=== PATIENT | male | born 1935 | race Caucasian/White ===

== ENCOUNTER 2016-08-22 14:50 | Inpatient (IN) | payer MEDICARE, BC ==
[2016-08-22] VITALS (17 sets, daily range): BP systolic 95–143; BP diastolic 48–79
[~2016-08-22] VITALS: Ht 185.4 cm; Wt 79.8 kg
--- NOTE | 2016-08-22 14:50 | NUR ---
PT [id number] FROM SO: SEVERE SOB, HYPOXIA. PT HAS LHAND #22 IV CARAMEL CUTTER HAND. PLACED ON MONITOR. PT HAS SUPRAPUBIC CATH DRAINING THRU GRAVITY. AWAITING MD ORDER
--- NOTE | 2016-08-22 15:21 | NUR ---
RAC #20 IV BLOOD SAMPLE COLLECTED SENT TO LAB
[2016-08-22 15:22] LABS: BASOPHILS # (AUTO) 0.2 /CMM (0.0-0.2); BASOPHILS % (AUTO) 0.9 % (0.0-2.0); EOSINOPHILS # (AUTO) 0.3 /CMM (0.0-0.7); EOSINOPHILS % (AUTO) 1.3 % (0.0-6.0); HEMATOCRIT 37 % (39-51); HEMOGLOBIN 11.3 g/dL (13.5-17.5); LYMPHOCYTES # (AUTO) 3.5 /CMM (0.8-4.8); LYMPHOCYTES % (AUTO) 13.3 % (20.0-44.0); MEAN CORPUSCULAR HEMOGLOBIN 25 PG (26.0-33.0); MEAN CORPUSCULAR HGB CONC 31 g/dl (31.0-36.0); MEAN CORPUSCULAR VOLUME 82 fL (80-96); MONOCYTES # (AUTO) 1.1 /CMM (0.1-1.30); MONOCYTES % (AUTO) 4.1 % (2.0-12.0); NEUTROPHILS # (AUTO) 21.6 /CMM (1.8-8.9); NEUTROPHILS % (AUTO) 80.4 % (43.0-81.0); PLATELET COUNT (AUTO) 542 /CMM (150-450); RDW COEFFICIENT OF VARIATION 15.5 (11.5-15.0); RED BLOOD CELL COUNT(AUTO) 4.46 MIL/uL (4.5-6.0)
--- NOTE | 2016-08-22 15:25 | NUR ---
PT ALLERGIC TO PCN DR HAN AGREE TO CEFIPIME PT HAD HX OF TAKING MEDS.
[2016-08-22 15:28] LABS: WHITE BLOOD COUNT (AUTO) 26.7 K/uL (4.3-11.0)
[2016-08-22] MEDS ORDERED: CEFEPIME 1 GM in IV D5W 50 ML IV ONE (15:30)
[2016-08-22] MEDS ORDERED: VANCOMYCIN 1 GM in IV D5W 250 ML IV ONE (15:30)
[2016-08-22 15:31] LABS: CALCIUM, SERUM 8.5 mg/dL (8.5-10.1); CARBON DIOXIDE 24 mmol/L (21-32); CHLORIDE 113 mmol/L (98-107); CREATININE 4.8 mg/dL (0.6-1.3); GLUCOSE 132 mg/dL (74-106); POTASSIUM 4.5 mmol/L (3.5-5.1); SODIUM SERUM 150 mmol/L (136-145); UREA NITROGEN, BLOOD 69 mg/dL (7-18)
[2016-08-22] MEDS ORDERED: IV SET PRIMARY PUMP SET 1 EA INFUS.SET MC ONE ×2 (15:31→18:49)
[2016-08-22 15:41] LABS: TROPONIN I 0.436 ng/mL (0.00-0.056)
[2016-08-22 15:42] LABS: INR 1.03 (0.87-1.13); PROTHROMBIN TIME 10.7 SECS (9.5-12.7)
[2016-08-22 15:44] LABS: ALANINE AMINOTRANSFERASE 25 U/L (12-78); ALBUMIN 2.4 g/dL (3.4-5.0); ALKALINE PHOSPHATASE 114 U/L (46-116); ASPARTATE AMINOTRANSFERASE 33 U/L (15-37); B-TYPE NATRIURETIC PEPTIDE 4661 PG/ML (0-125); BILIRUBIN,DIRECT 0.1 mg/dL (0.0-0.2); BILIRUBIN,TOTAL 0.2 mg/dL (0.2-1.0); TOTAL PROTEIN, SERUM 8.7 g/dL (6.4-8.2)
[2016-08-22 16:01] LABS: ABG BASE EXCESS -6.2 mmol/L; ABG OXYGEN SATURATION 99.4 % (92.0-98.5); ABG PCO2 30.5 mmHg (35.0-45.0); ABG PH 7.385 (7.350-7.450); ABG PO2 368.1 mmHg (75.0-100.0); AaDO2 314.4 mmHg; COHb 0.3 % (0.5-1.5); MetHb 0.5 % (0.0-1.5); O2Hb 98.6 % (94.0-97.0); PEEP,BG 5 cm H2O; SITE, ABG Right Radial; VENT MODE, BG BIPAP
[2016-08-22] MEDS ORDERED: FUROSEMIDE 100 MG/10 ML VIAL ONE (16:19)
[2016-08-22] MEDS ORDERED: FUROSEMIDE 40 MG/4 ML VIAL IV ONE (16:30)
[2016-08-22] MEDS ORDERED: METH1TAB30 PO (16:38)
[2016-08-22] MEDS ORDERED: FERR-58 PO (16:38)
[2016-08-22] MEDS ORDERED: AMLO5TAB2 PO (16:38)
[2016-08-22] MEDS ORDERED: ASCO-340 PO (16:38)
[2016-08-22] MEDS ORDERED: DEXT15DR6 EACHEYE (16:38)
[2016-08-22] MEDS ORDERED: CLON0.5T4 PO (16:38)
[2016-08-22] MEDS ORDERED: TRAZ-144 PO (16:38)
[2016-08-22] MEDS ORDERED: LOPE2TAB25 PO (16:38)
[2016-08-22] MEDS ORDERED: EPOE1VIA6 SQ (16:38)
[2016-08-22] MEDS ORDERED: MAGN400O6 PO (16:38)
[2016-08-22] MEDS ORDERED: CLOP75TA2 PO (16:38)
[2016-08-22] MEDS ORDERED: ZOLP5TAB2 PO (16:38)
[2016-08-22] MEDS ORDERED: DOCU-25 PO (16:38)
[2016-08-22] MEDS ORDERED: ACET-868 PO (16:38)
[2016-08-22] MEDS ORDERED: MULT1TAB11 PO (16:38)
[2016-08-22] MEDS ORDERED: CRAN3875 PO (16:38)
[2016-08-22] MEDS ORDERED: MEMA28CA PO (16:38)
[2016-08-22] MEDS ORDERED: CRAN425C PO (16:38)
--- NOTE | 2016-08-22 17:11 | NUR ---
NOTE: SEPSIS- HOWEVER, THE PATIENT IS ALSO IN HEART FAILURE; THUS, THE PATIENT WAS GIVEN LASIX AND INTRAVENOUS ANTIBIOTICS PER DR. DELEON
--- NOTE | 2016-08-22 17:13 | NUR ---
ADMIT TO UNDER [facility], CONTINUE PLAN OF CARE
[2016-08-22] MEDS ORDERED: Z GUARD REMEDY 2 OZ OINT TP PRN (18:30)
[2016-08-22] MEDS ORDERED: ZOLPIDEM TARTRATE 5 MG TABLET PO PRN (18:30)
[2016-08-22] MEDS ORDERED: HYDROCODONE/APAP 5/325MG 1 EACH TABLET PO PRN (18:30)
[2016-08-22] MEDS ORDERED: IV NS 0.9% 1,000 ML BAG IV ONE ×2 (18:30→20:30)
[2016-08-22] MEDS ORDERED: ACETAMINOPHEN 325 MG TABLET PO PRN (18:30)
[2016-08-22] MEDS ORDERED: MAG HYDROX/AL HYDROX/SIMETH 30 ML UDC PO PRN (18:30)
[2016-08-22] MEDS ORDERED: MAGNESIUM HYDROXIDE 30 ML UDC PO PRN (18:30)
[2016-08-22] MEDS ORDERED: ONDANSETRON HCL/PF 4 MG/2 ML VIAL IVP PRN (18:30)
[2016-08-22] MEDS ORDERED: FEE PK DOSING 1 MIN EA MC ONE (18:40)
[2016-08-22] MEDS: IV 1/2NS 1000 ML 1,000 ML IV SCH (18:50)
--- NOTE | 2016-08-22 19:30 | NUR ---
SPOKE TO DR MILES, HE SAID TO GIVE THE 2.5 LITER NS BOLUS, PHARMACY LEFT BEFORE CONFIRMING THE ORDER, SO I PLACED ANOTHER ORDER TO GIVE 2.5 L NS BOLUS BASED ON DR MILES ORDER
[2016-08-22] MEDS ORDERED: PIPERACILLIN /TAZOBACTAM 2.25 G in IV D5W 50 ML IV SCH (20:00)
--- NOTE | 2016-08-22 20:00 | NUR ---
DOOR CLOSER - NOTES - PT RECEIEVED FROM DAY SHIFT, FERBRILE WITH TEMP 102.7. PT IS ON BIPAP 20/5 RATE 14 FIO2 40%. INITIAL PHYSICAL ASSESSMENT AND INITAL ASSESSMENT WERE NOT DONE, I WILL COMPLETE CHARTING TO THE BEST OF MY ABILITY. PT IS AWAKE, CONFUSED WITH HISTORY OF DEMENTIA. PT BP WNL ST 110S. WILL GIVE PT 2.5 L NS BOLUS. PT HAS SUPRAPUBIC CATHETER WITH DARK WILLAM URINE. PT HAS 20G IV RIGHT AC, 20G IV LEFT HAND, WITH 1/2 NS @ 75 ML/HR. WILL CONTINUE TO MONITOR
[2016-08-22] MEDS ORDERED: IV NS 0.9% 1,000 ML ONE ×2 (20:03→21:21)
[2016-08-22] MEDS ORDERED: MEROPENEM 500 MG VIAL IV ONE (21:06)
[2016-08-22] MEDS ORDERED: IV NS 0.9% 50 ML IV ONE (21:26)
[2016-08-22] MEDS: MEROPENEM 500 MG in IV NS 0.9% 50 ML IV SCH (21:32)
[2016-08-22] MEDS ORDERED: SECONDARY IV SET 1 EA INFUS.SET MC ONE (21:36)
[2016-08-22] MEDS ORDERED: IV NS 0.9% 500 ML IV ONE (23:06)
[2016-08-23] VITALS (36 sets, daily range): BP systolic 99–166; BP diastolic 28–112
[2016-08-23 04:58] LABS: BASOPHILS # (AUTO) 0.1 /CMM (0.0-0.2); BASOPHILS % (AUTO) 0.3 % (0.0-2.0); EOSINOPHILS # (AUTO) 0.1 /CMM (0.0-0.7); EOSINOPHILS % (AUTO) 0.5 % (0.0-6.0); HEMATOCRIT 33 % (39-51); HEMOGLOBIN 10.2 g/dL (13.5-17.5); LYMPHOCYTES # (AUTO) 2.4 /CMM (0.8-4.8); LYMPHOCYTES % (AUTO) 11.5 % (20.0-44.0); MEAN CORPUSCULAR HEMOGLOBIN 26 PG (26.0-33.0); MEAN CORPUSCULAR HGB CONC 31 g/dl (31.0-36.0); MEAN CORPUSCULAR VOLUME 83 fL (80-96); MONOCYTES # (AUTO) 1.6 /CMM (0.1-1.30); MONOCYTES % (AUTO) 7.5 % (2.0-12.0); NEUTROPHILS # (AUTO) 16.7 /CMM (1.8-8.9); NEUTROPHILS % (AUTO) 80.2 % (43.0-81.0); PLATELET COUNT (AUTO) 369 /CMM (150-450); RDW COEFFICIENT OF VARIATION 16.2 (11.5-15.0); RED BLOOD CELL COUNT(AUTO) 3.92 MIL/uL (4.5-6.0); WHITE BLOOD COUNT (AUTO) 20.8 K/uL (4.3-11.0)
[2016-08-23 05:14] LABS: CALCIUM, SERUM 8.1 mg/dL (8.5-10.1); CARBON DIOXIDE 23 mmol/L (21-32); CHLORIDE 117 mmol/L (98-107); CREATININE 4.7 mg/dL (0.6-1.3); GLUCOSE 105 mg/dL (74-106); MAGNESIUM 2.3 mg/dL (1.8-2.4); PHOSPHORUS 5.9 mg/dL (2.5-4.9); POTASSIUM 4.7 mmol/L (3.5-5.1); SODIUM SERUM 151 mmol/L (136-145); UREA NITROGEN, BLOOD 67 mg/dL (7-18)
[2016-08-23 05:17] LABS: APPEARANCE,URINE CLOUDY (CLEAR); BILIRUBIN,URINE NEGATIVE (NEGATIVE); BLOOD, URINE 3+ Ery/uL (NEGATIVE); COLOR,URINE BROWN (YELLOW); KETONES,URINE NEGATIVE (NEGATIVE); LEUKOCYTE ESTERASE ,URINE TRACE (NEGATIVE); NITRITE, URINE NEGATIVE (NEGATIVE); PH,URINE 5.5 (5.0-8.0); PROTEIN,URINE 2+ mg/dl (NEGATIVE); UGLUCOSE NEGATIVE (NEGATIVE); UROBILINOGEN,URINE 0.2 EU/dL (0.2)
[2016-08-23 05:31] LABS: BACTERIA,URINE 1+ /HPF (None Seen); RBC,URINE 81-100 /HPF (0-2); SQUAMOUS EPITHELIAL CELL,UR Few /HPF (None Seen)
[2016-08-23 05:32] LABS: FINE GRANULAR CASTS,URINE Rare /LPF (None Seen)
[2016-08-23] MEDS ORDERED: PANTOPRAZOLE 40 MG TABLET.DR PO SCH (07:30)
--- NOTE | 2016-08-23 08:03 | NUR ---
INITIAL TUBE CUTTER NOTE RCVD PT AWAKE, ALERT TO HIS NAME, CONFUSED OTHERWISE. ABLE TO FOLLOW SOME COMMANDS. PT WAS RE-ORIENTED TO PLACE, SITUATION, TIME. PT ON BIPAP TOLERATING WELL. SUPRAPUBIC CATH IN PLACE DRAINING CLOUDY, FLANNERY COLORED URINE. IV SITES C/D/I/ PATENT. NO S/O INFILTRATION OR PHLEBITIS OBSERVED. IVF INFUSING. WILL CONTINUE TO MONITOR PT FOR SAFETY AND COMFORT. CALL LIGHT WITHIN REACH. BED IN LOW AND LOCKED POSITION. BED ALARM ACTIVATED.
[2016-08-23 08:21] LABS: BAND % (MANUAL) 6 % (0.0-5.0); LYMPHOCYTES % (MANUAL) 15 % (16-48); MONOCYTES % (MANUAL) 6 % (0-11.0); NEUTROPHILS % (MANUAL) 72 (42-76)
[2016-08-23 08:22] LABS: EOSINOPHILS % (MANUAL) 1 % (0-4)
[2016-08-23] MEDS: PANTOPRAZOLE 40 MG VIAL IV SCH (08:32)
[2016-08-23] MEDS: CLOPIDOGREL BISULFATE 75 MG TABLET PO SCH ×2 (08:32→09:00)
[2016-08-23] MEDS: IV 1/2NS 1000 ML 1,000 ML IV SCH (08:35)
--- NOTE | 2016-08-23 09:07 | NUR ---
ECMO SPECIALIST NOTE BEDSIDE RN SWALLOW EVAL PERFORMED. PT UNABLE TO TOLERATE ICE CHIPS, COUGHING NOTED, PT WAS SUCTIONED AND MOUTH CARE WAS PERFORMED. WILL CONTINUE TO MONITOR.
[2016-08-23] MEDS: MEROPENEM 500 MG in IV NS 0.9% 50 ML IV SCH ×2 (09:17→20:34)
--- NOTE | 2016-08-23 10:41 | NUR ---
WOUND CARE CONSULT: PT PRESENTS WITH MULTIPLE SKIN ISSUES INCLUDING RASH, RED AREAS TO ABDOMEN AND LESIONS TO LEFT SHOULDER, ANTERIOR NECK ( DRY SCAB) AND RT UPPER BACK AREA, PRESENT ON ADMISSION. FIRST STEP MATTRESS ORDERED. PT IS VERY RIGID AND IMMOBILE ALTHOUGH HE TENDS TO GRAB AT THINGS. ALL SKIN PROTECTION MEASURES IN PLACE AND DISCUSSED WITH NURSING STAFF. SUPRAPUBIC CATH NOTED. WILL SEE PRN. IN AGREEMENT WITH PLAN OF CARE.
[2016-08-23 10:48] LABS: ABG BASE EXCESS -5.3 mmol/L; ABG PCO2 30.7 mmHg (35.0-45.0); ABG PH 7.401 (7.350-7.450); ABG PO2 99.4 mmHg (75.0-100.0); AaDO2 150.5 mmHg; COHb 0.4 % (0.5-1.5); MetHb 0.4 % (0.0-1.5); O2Hb 96.2 % (94.0-97.0); SITE, ABG Right Radial
[2016-08-23] MEDS: IV D5W 1,000 ML IV PRN (12:02)
--- NOTE | 2016-08-23 12:04 | NUR ---
SENIOR PROJECT ACCOUNTANT NOTE DR. MILES AT PT'S BEDSIDE UPDATED ON PT'S CONDITION. OFF BIPAP SINCE 0900 TOLERATING O2 VIA NC WITH GOOD SATURATION. DNR/DNI STATUS CONFIRMED WITH PT'S , CHRISTOPHER, WHO VISITED THIS AM. POSSIBLE DOWNGRADE TODAY.
[2016-08-23] MEDS ORDERED: SILVER NITRATE APPLICATOR 1 EA BOX TP ONE (15:00)
[2016-08-23] MEDS ORDERED: LIDOCAINE 2%-EPI 1:100,000 30 ML VIAL TP ONE (15:00)
[2016-08-23 15:48] LABS: CREATININE, URINE 25.9 MG/DL (30.0-125.0)
--- NOTE | 2016-08-23 16:02 | NUR ---
REMOTE RECRUITER NOTE PT TRANSFERRED VIA BED PER PROTOCOL TO FIRST FLOOR. ACCOMPANIED BY 2 RNs. VITAL SIGNS STABLE. IV SITES INTACT. PT REMAINS CONFUSED, ALERT TO SELF. BED BATH PROVIDED. REPORT GIVEN AT BEDSIDE TO SHERMAN BARNES. CONSENT FOR LEFT SHOULDER BIOPSY ENDORSED TO SHERMAN BARNES. PRIOR TO TRANSFERRING PT SWALLOW EVAL WAS DONE. PT FAILED DUE TO BEING UNABLE TO FOLLOW COMMANDS TO SWALLOW APPLE SAUCE GIVEN. SPEECH THERAPIST RECOMMENDED TO KEEP PT NPO FOR NOW. THIS INFORMATION WAS COMMUNICATED TO SHERMAN BARNES WELL.
--- NOTE | 2016-08-23 19:05 | NUR ---
RN CLOSING NOTES: REC'D PT FROM JASON, GATE WATCH. PT A/O X1-2 W/ PERIODS OF CONFUSION. ON NC AT 2LPM, NO SOB. ON TELEMONITOR, SR. SUPRAPUBIC CATH KEPT PATENT & INTACT. IV LINE ACCESS KEPT PATENT W/ D5W X 50 CC/HR INFUSING WELL, NO S/SX OF INFECTION/ INFILTRATION NOTED. KEPT NPO FOR NOW DUE TO FAILED ST. PT SCHED FOR L SHOULDER SKIN BIOPSY POSSIBLY TUESDAY, NEEDS CONSENT (ENDORSED TO PM RN). KEPT WELL RESTED. NEEDS ATTENDED. CALL LIGHT PLACED W/IN REACH. BED KEPT LOW & IN LOCKED POS. ENDORSED TO PM RN FOR JOHANNA.
--- NOTE | 2016-08-23 19:30 | NUR ---
FOUNDRY OPERATOR OPENING NOTES: PATIENT IN BED, AOX1, ON O2 AT 2 LPM VIA NC, BREATHING EVEN AND UNLABORED. APPEARS CALM AND IN NO DISTRESS. PIV OVER L HAND G20 INTACT AND INFUSING WELL WITH D5W RUNNING AT 50 ML/HR. WITH SUPRAPUBIC CATHETER, DRAINING DARK YELLOW URINE. PROVIDED FOR COMFORT AND SAFETY. MAINTAINED ON NPO. HOB MAINTAINED ELEVATED. BED IN LOWEST AND LOCKED POSITION, SIDERAILS UP X3, BED ALARM ON. WILL CONT TO MONITOR.
[2016-08-23] MEDS: ATORVASTATIN 10 MG TABLET PO SCH (22:00)
[2016-08-24] VITALS: BP 140/68
[2016-08-24 04:00] VITALS: BP 141/64
--- NOTE | 2016-08-24 06:44 | NUR ---
SKELP PROCESSOR CLOSING NOTES: PATIENT IN BED, AOX1, ON O2 AT 2 LPM VIA NC. BREATHING EVEN AND UNLABORED. ON TELE MONITORING WITH SINUS RHYTHM AT RATE OF 80S. MAINTAINED ON NPO / STRICT ASPIRATION PRECAUTIONS. PIV OVER L HAND G 20 INTACT NAD INFUSING WELL WITH D5W RUNNING AT 50 ML/HR. SUPRAPUBIC CATHETER IN PLACE, NO SIGNS OF SWELLING, REDNESS OR PURULENT DISCHARGE FROM STOMA, DRAINED 1450 CC CLOUDY, WILLAM COLORED URINE THROUGH SHIFT. NO ACUTE CHANGE IN CONDITION NOTED THROUGH SHIFT. PROVIDED FOR COMFORT AND SAFETY. MORNING CARE RENDERED. BED IN LOWEST AND LOCKED POSITION, SIDERAILS UPX3, BED ALARMS ON. WILL ENDORSE TO AM RN FOR JOHANNA.
[2016-08-24] MEDS: IV D5W 1,000 ML IV PRN (06:48)
[2016-08-24 06:53] LABS: HEMATOCRIT 32 % (39-51); MEAN CORPUSCULAR HEMOGLOBIN 26 PG (26.0-33.0); MEAN CORPUSCULAR HGB CONC 32 g/dl (31.0-36.0); MEAN CORPUSCULAR VOLUME 82 fL (80-96); PLATELET COUNT (AUTO) 375 /CMM (150-450); RDW COEFFICIENT OF VARIATION 16.8 (11.5-15.0); RED BLOOD CELL COUNT(AUTO) 3.85 MIL/uL (4.5-6.0); WHITE BLOOD COUNT (AUTO) 14.9 K/uL (4.3-11.0)
[2016-08-24 07:20] LABS: CALCIUM, SERUM 8.2 mg/dL (8.5-10.1); CREATININE 4.6 mg/dL (0.6-1.3); GLUCOSE 88 mg/dL (74-106); MAGNESIUM 2.2 mg/dL (1.8-2.4); PHOSPHORUS 5.5 mg/dL (2.5-4.9); UREA NITROGEN, BLOOD 64 mg/dL (7-18)
[2016-08-24 07:42] LABS: CARBON DIOXIDE 22 mmol/L (21-32); CHLORIDE 118 mmol/L (98-107); POTASSIUM 3.7 mmol/L (3.5-5.1); SODIUM SERUM 153 mmol/L (136-145)
--- NOTE | 2016-08-24 07:42 | NUR ---
BEAD PICKER NOTE PATIENT IN BED, ALERT WITH CONFUSION ,BED ALARM IN PLACE , ON 2L NC, NO SOB NOTED AT THIS RIME, ON TELE MONITOR SR , WITH SUPRAPUBIC CATH WITH YELLOW WILLAM COLOR ,ON NPO STATUS ORDERED , LT HAND HL INTACT ON IVF ORDERED, BED IN LOWEST AND LOCKED POSITION , CALL LIGHT WITHIN REACH, WILL CONT TO MONITOR CLOSELY
[2016-08-24 08:00] VITALS: BP 144/57
[2016-08-24] MEDS: CLOPIDOGREL BISULFATE 75 MG TABLET PO SCH (08:29)
[2016-08-24] MEDS: MEROPENEM 500 MG in IV NS 0.9% 50 ML IV SCH ×2 (08:29→21:10)
[2016-08-24] MEDS: PANTOPRAZOLE 40 MG VIAL IV SCH (08:29)
--- NOTE | 2016-08-24 08:45 | NUR ---
SCALEMAKER NOTE HL ON LT HAND LEAKING , CONT ON IVF ON RT AC , WILL CONT TO MONITOR CLOSELY
[2016-08-24 09:11] LABS: EOSINOPHILS % (MANUAL) 1 % (0-4); LYMPHOCYTES % (MANUAL) 12 % (16-48); MONOCYTES % (MANUAL) 5 % (0-11.0); NEUTROPHILS % (MANUAL) 82 (42-76)
--- NOTE | 2016-08-24 11:12 | NUR ---
JOEL WHITAKER NOTE ARTERIAL DOPPLER STUDY DONE ORDERED ,KEEP CLEAN DRY WILL CONT TO MONITOR CHOOSEY Addendum: 08/24/16 at 1113 by ZOILA SZYMANSKI RN WILL MONITOR CLOSELY
--- NOTE | 2016-08-24 11:54 | NUR ---
ARTS AND HUMANITIES COUNCIL DIRECTOR NOTE RT UPPER ARM MIDLINE INSERTED ORDERED RANDY 18 , KEEP CLEAN DRY
[2016-08-24 12:00] VITALS: BP 131/58
--- NOTE | 2016-08-24 14:23 | NUR ---
MS RN NOTE RACHEAL WHITAKER SUPERVISOR PHOSPHATIC FERTILIZER AWARE THAT HOLDING IVF ,PATIENT ON NPO AWARE THAT ABDOMINAL US DONE , NA 151 ALSO ORDERED IVF AT 60 ML PER HOUR, STILL NPO AT THIS TIME ,WILL CONT TO MONITOR CLOSELY
[2016-08-24] MEDS ORDERED: IV D5/0.45 NACL 1,000 ML IV PRN (14:30)
[2016-08-24 14:38] LABS: TROPONIN I 0.169 ng/mL (0.00-0.056)
[2016-08-24] MEDS: HEPARIN SODIUM, PORCINE 5000 UNITS/1 ML VIAL SQ SCH (15:52)
[2016-08-24] MEDS ORDERED: SECONDARY IV SET 1 EA INFUS.SET MC ONE (15:56)
[2016-08-24 16:00] VITALS: BP 123/66
[2016-08-24] MEDS ORDERED: VANCOMYCIN 0.75 GM in IV D5W 250 ML IV SCH (16:00)
[2016-08-24] MEDS: POLYVINYL ALCOHOL 15 ML BOTTLE EACHEYE SCH (16:52)
[2016-08-24] MEDS: EPOETIN ALFA (10,000 UNIT) 10,000 UNIT/ML VIAL SQ SCH (16:53)
--- NOTE | 2016-08-24 16:57 | NUR ---
ms rn note respiratory cx collected as orderer
--- NOTE | 2016-08-24 16:57 | NUR ---
NT SUCTIONED TO OBTAIN SPUTUM SAMPLE WITH MODERATE AMOUNT OF THICK WHITE SECRETIONS AND NO ADVERSE REACTION. NURSE (ZOILA) AWARE.
--- NOTE | 2016-08-24 18:33 | NUR ---
MS RN NOTE ALL NEEDS ATTENDED, NOT IN ACUTE DISTRESS, CONT ON ON IVF ORDERED, WILL CONT TO MONITOR CLOSELY
--- NOTE | 2016-08-24 19:30 | NUR ---
MS RN INITIAL NOTE RECEIVED REPORT FROM ZOILA WHITAKER. PT IN BED. A/A/ BUT NOT ORIENTED. DID NOT ANSWER QUESTIONS APPROPRIATELY. LUNG SOUNDS DIMINISHED. BOWEL SOUNDS PRESENT. SUPRAPUBIC CATH INTACT AND DRAINING WILLAM URINE. IV PATENT AND INTACT. WOUND DRESSINGS INTACT. BED IN LOW LOCKED POSITION. WILL CONTINUE TO MONITOR.
--- NOTE | 2016-08-24 20:00 | NUR ---
MS RN PT REFUSING VS. WILL CONTINUE TO MONITOR AND REATTEMPT LATER.
[2016-08-24] MEDS: ATORVASTATIN 10 MG TABLET PO SCH (21:10)
[2016-08-25] MEDS: IV D5W 1,000 ML IV PRN ×2 (02:57→17:28)
[2016-08-25] MEDS: HEPARIN SODIUM, PORCINE 5000 UNITS/1 ML VIAL SQ SCH ×2 (02:58→15:11)
--- NOTE | 2016-08-25 04:00 | NUR ---
MS RN ATTEMPTED TO TAKE VITALS, PT BECAME AGGRESSIVE AND COMBATIVE. NO VITALS WERE TAKEN.
[2016-08-25 07:16] LABS: BASOPHILS # (AUTO) 0.1 /CMM (0.0-0.2); BASOPHILS % (AUTO) 0.9 % (0.0-2.0); EOSINOPHILS # (AUTO) 0.7 /CMM (0.0-0.7); EOSINOPHILS % (AUTO) 4.1 % (0.0-6.0); HEMATOCRIT 32 % (39-51); HEMOGLOBIN 9.9 g/dL (13.5-17.5); LYMPHOCYTES # (AUTO) 2.3 /CMM (0.8-4.8); LYMPHOCYTES % (AUTO) 13.5 % (20.0-44.0); MEAN CORPUSCULAR HEMOGLOBIN 26 PG (26.0-33.0); MEAN CORPUSCULAR HGB CONC 31 g/dl (31.0-36.0); MEAN CORPUSCULAR VOLUME 82 fL (80-96); MONOCYTES % (AUTO) 6.3 % (2.0-12.0); NEUTROPHILS # (AUTO) 12.6 /CMM (1.8-8.9); NEUTROPHILS % (AUTO) 75.2 % (43.0-81.0); PLATELET COUNT (AUTO) 396 /CMM (150-450); RDW COEFFICIENT OF VARIATION 17.3 (11.5-15.0); RED BLOOD CELL COUNT(AUTO) 3.89 MIL/uL (4.5-6.0); WHITE BLOOD COUNT (AUTO) 16.7 K/uL (4.3-11.0)
--- NOTE | 2016-08-25 07:21 | NUR ---
RN INITIAL NOTES: REC'D PT ASLEEP ON BED, NOT IN ANY DISTRESS, EASILY AROUSABLE, A/O X1, CONFUSED. ON O2 AT 2LPM/NC, NO SOB. HAS SUPRAPUBIC CATH IN PLACE, PATENT & INTACT. HAS CHARLIE MIDLINE PATENT & INTACT W/ D5W X 60 CC/HR INFUSING WELL. R AC G20, SL, FLUSHED, PATENT & INTACT. PROVIDED COMFORT & SAFETY MEASURES. BED KEPT LOW & IN LOCKED POSITION. CALL LIGHT PLACED W/IN REACH. WILL KEEP NPO FOR NOW UNTIL FURTHER ORDER D/T FAILED SWALLOW EVAL. WILL CONTINUE TO MONITOR.
[2016-08-25 07:58] LABS: CALCIUM, SERUM 8.2 mg/dL (8.5-10.1); CARBON DIOXIDE 24 mmol/L (21-32); CHLORIDE 117 mmol/L (98-107); CREATININE 4.7 mg/dL (0.6-1.3); GLUCOSE 99 mg/dL (74-106); MAGNESIUM 2.1 mg/dL (1.8-2.4); PHOSPHORUS 5.4 mg/dL (2.5-4.9); POTASSIUM 3.9 mmol/L (3.5-5.1); SODIUM SERUM 154 mmol/L (136-145); UREA NITROGEN, BLOOD 62 mg/dL (7-18)
[2016-08-25 08:00] VITALS: BP 136/57
[2016-08-25] MEDS: CLOPIDOGREL BISULFATE 75 MG TABLET PO SCH (09:00)
[2016-08-25] MEDS: MEROPENEM 500 MG in IV NS 0.9% 50 ML IV SCH ×2 (09:20→21:50)
[2016-08-25] MEDS: PANTOPRAZOLE 40 MG VIAL IV SCH (09:20)
[2016-08-25] MEDS: POLYVINYL ALCOHOL 15 ML BOTTLE EACHEYE SCH ×3 (09:20→17:30)
--- NOTE | 2016-08-25 10:58 | NUR ---
RN NOTES: AT BEDSIDE ASKED FOR CONSENT FOR L SHOULDER BIOPSY BUT REFUSED.
--- NOTE | 2016-08-25 12:25 | NUR ---
RN NOTES: NOTIFIED MAIRSA ADAN (FOR DR. JENSEN) RE: REFUSED TO SIGN CONSENT FOR L SHOULDER SKIN BIOPSY.
--- NOTE | 2016-08-25 12:55 | NUR ---
RN NOTES: PT SEEN & EXAMINED BY DR. LIVINGSTON.
--- NOTE | 2016-08-25 13:43 | NUR ---
RN NOTES: PT SEEN & EXAMINED BY CRESENCIO PAYNE, ORDERS TO DO SWALLOW RE-EVALUATION DUE TO FAILED 1ST ATTEMPT. KERRY IS AWARE THAT IF EVER PT FAILED THE RE-EVAL, FAMILY IS NOT AMENABLE FOR NGT INSERTION AT THIS TIME.
[2016-08-25 16:00] VITALS: BP_SYST 121; BP_DIAS 80; BP_DIAS 88
--- NOTE | 2016-08-25 17:00 | NUR ---
RN NOTES: ST RE-EVAL DONE BUT FAILED 2ND TIME. PER THERAPIST, PT COUGHING A LOT W/ ICE CHIPS AND APPLE SAUCE. NEEDS TO SUCTION MOUTH AFTER FEEDING. RECOMMENDED NPO FOR NOW.
--- NOTE | 2016-08-25 19:27 | NUR ---
RN CLOSING NOTES: PT STILL KEPT NPO D/T FAILED SWALLOW RE-EVAL. NO SOB WHILE ON O2 AT 2LPM/NC. A/O X1 W/ PERIODS OF AGGRESSIVENESS/ COMBATIVE. SUPRAPUBIC CATH KEPT PATENT & INTACT STILL DRAINING W/ WILLAM COLORED URINE OUTPUT. IV LINE ACCESS KEPT PATENT & INTACT W/ NO S/SX OF INFECTION/ INFILTRATION, D5W AT 80 CC/HR INFUSING WELL ON CHARLIE MIDLINE. KEPT WELL RESTED. NEEDS ATTENDED. CALL LIGHT PLACED W/IN REACH. BED KEPT LOW & IN LOCKED POS. WILL ENDORSE TO PM RN FOR JOHANNA. Addendum: 08/25/16 at 1950 by CAMERON DE LA TORRE RN ADDENDUM: CRESENCIO PAYNE MADE AWARE THAT PT FAILED SWALLOW RE-EVAL W/ NO NEW ORDERS.
--- NOTE | 2016-08-25 19:40 | NUR ---
RN OPENING NOTE RECEIVED REPORT FROM ARNEL RN. FOUND Pt ASLEEP IN BED. RR EVEN & UNLABORED WITH EQUAL CHEST RISE AND FALL. NO S/S OF ACUTE DISTRESS OR SOB NOTED. IV ACCESS ON CHARLIE MIDLINE, IVF D5W RUNNING @80ML/HR. 2ND IV ACCESS ON RAC #20G, SL. SAFETY MEASURES IN PLACE. BED LOW, LOCKED, HEAD OF BED ELEVATED, SIDE RAILS UP, CALL LIGHT WITHIN REACH. WILL CONTINUE TO MONITOR Pt THROUGHOUT THE NIGHT FOR SAFETY.
[2016-08-25 20:26] VITALS: BP 133/66
[2016-08-25] MEDS: ATORVASTATIN 10 MG TABLET PO SCH (21:51)
[2016-08-26] VITALS: BP 133/66
[2016-08-26] MEDS: HEPARIN SODIUM, PORCINE 5000 UNITS/1 ML VIAL SQ SCH ×2 (03:13→16:00)
--- NOTE | 2016-08-26 06:30 | NUR ---
RN CLOSING NOTES NO SIGNIFICANT CHANGES TO Pt's CONDITION. NO S/S OF ACUTE DISTRESS OR SEVERE SOB NOTED DURING THE NIGHT. ALL NEEDS MET AND ATTENDED TO. SAFETY MEASURES IN PLACE. WILL ENDORSE TO DAYSHIFT RN FOR Pt's JOHANNA.
[2016-08-26 07:07] LABS: CARBON DIOXIDE 25 mmol/L (21-32); CHLORIDE 113 mmol/L (98-107); CREATININE 4.6 mg/dL (0.6-1.3); GLUCOSE 94 mg/dL (74-106); POTASSIUM 3.1 mmol/L (3.5-5.1); SODIUM SERUM 149 mmol/L (136-145); UREA NITROGEN, BLOOD 57 mg/dL (7-18)
--- NOTE | 2016-08-26 07:45 | NUR ---
RN NOTES: INITIAL NOTES: PT RECEIVED ALERT AWAKE ORIENTED X1. NOTED PERIODS OF CONFUSION. MUMBLED WORDS. ON 2 LPM O2 VIA NC. BREATHING PATTERN REGULAR & UNLABORED. IV SITE INTACT, DRESSING INTACT & DRY. RUNNING IV FLUIDS ORDER. SUPRAPUBIC CATHETER INTACT, DRAINING WELL WITH GRAVITY. NPO STATUS. SAFETY MEASURES OBSERVED. CALL LIGHT WITHIN REACH. WILL CONTINUE TO MONITOR.
[2016-08-26 08:00] VITALS: BP 131/52
[2016-08-26] MEDS: PANTOPRAZOLE 40 MG VIAL IV SCH (08:06)
[2016-08-26] MEDS: MEROPENEM 500 MG in IV NS 0.9% 50 ML IV SCH ×2 (08:06→20:22)
[2016-08-26] MEDS: IV D5W 1,000 ML IV PRN (08:07)
[2016-08-26] MEDS: POLYVINYL ALCOHOL 15 ML BOTTLE EACHEYE SCH ×3 (08:07→16:04)
[2016-08-26] MEDS: CLOPIDOGREL BISULFATE 75 MG TABLET PO SCH (08:08)
[2016-08-26] MEDS ORDERED: SECONDARY IV SET 1 EA INFUS.SET MC ONE (12:15)
[2016-08-26] MEDS: POTASSIUM CL. PREMIX PERIPHER. 50 ML IV SCH ×4 (12:25→15:59)
[2016-08-26 14:35] LABS: APPEARANCE,URINE SL CLOUDY (CLEAR); BILIRUBIN,URINE NEGATIVE (NEGATIVE); BLOOD, URINE 3+ Ery/uL (NEGATIVE); COLOR,URINE YELLOW (YELLOW); KETONES,URINE NEGATIVE (NEGATIVE); LEUKOCYTE ESTERASE ,URINE TRACE (NEGATIVE); NITRITE, URINE NEGATIVE (NEGATIVE); PROTEIN,URINE 2+ mg/dl (NEGATIVE); UGLUCOSE NEGATIVE (NEGATIVE); UROBILINOGEN,URINE 0.2 EU/dL (0.2)
[2016-08-26 14:56] LABS: RBC,URINE 81-100 /HPF (0-2)
[2016-08-26 14:57] LABS: BACTERIA,URINE 1+ /HPF (None Seen); SQUAMOUS EPITHELIAL CELL,UR None Seen /HPF (None Seen)
[2016-08-26 15:16] LABS: EOSINOPHIL,URINE Few
[2016-08-26 15:17] LABS: URINE TOTAL PROTEIN 229.9 mg/dL (0-11.9)
[2016-08-26] MEDS: EPOETIN ALFA (10,000 UNIT) 10,000 UNIT/ML VIAL SQ SCH (15:59)
[2016-08-26 16:00] VITALS: BP 129/63
[2016-08-26] MEDS ORDERED: VANCOMYCIN 1 GM in IV D5W 250 ML IV SCH (16:00)
--- NOTE | 2016-08-26 17:00 | NUR ---
RN NOTES: SPOKE WITH DAUGHTER JENNIFER BARON, WANTS TO TALK TO DOCTOR. SPOKE WITH KERRY DUPONT. GAVE NUMBER TO CALL FAMILY.
--- NOTE | 2016-08-26 17:10 | NUR ---
RN NOTES: DAUGHTER JENNIFER CALLED BACK THAT AGREE FOR TUBE FEEDING , KERRY DUPONT MADE AWARE, & SAID WILL CONTACT FAMILY.
--- NOTE | 2016-08-26 18:00 | NUR ---
RN NOTES: REFUSED FOR PM CARE. PT NOTED VERY AGITATED R/T PM CARE/ BED-BATH, REFUSED TO REPOSITION. EXPLAINED R/B. STILL REFUSED. PT NOTED CLEAN & DRY. WILL CONTINUE TO MONITOR,
--- NOTE | 2016-08-26 19:46 | NUR ---
RECEIVED PATIENT IN BED, ALERT AND ORIENTED X1, WITH EPISODES OF CONFUSION, BECOMES AGITATED WHEN TOUCH. NO SOB, NO RESPIRATORY DISTRESS, ON 2LPM VIA NC, DENIES ANY PAIN AT THIS TIME, CHARLIE MIDLINE IS PATENT AND INFUSING WELL WITH D5W AT 80CC/HR, SUPRAPUBIC CATHETER DRAINING WELL WITH TEA COLORED COLORED URINE, PATIENT IS NPO AT THIS TIME, PER REPORT FAILED SWALLOW EVAL X2, KEPT SAFE AND COMFORTABLE, HEELS OFFLOADED, CALL LIGHT WITHIN REACH.
[2016-08-26 20:00] VITALS: BP 117/54
[2016-08-26] MEDS: ATORVASTATIN 10 MG TABLET PO SCH (21:23)
--- NOTE | 2016-08-26 21:23 | NUR ---
ATORVASTATIN HELD, PATIENT IS NPO, ASPIRATION RISK, FAILED SWALLOW EVAL
[2016-08-27] VITALS: BP 132/57
[2016-08-27] MEDS: HEPARIN SODIUM, PORCINE 5000 UNITS/1 ML VIAL SQ SCH ×2 (02:15→15:00)
[2016-08-27] MEDS: IV D5W 1,000 ML IV PRN ×2 (03:06→23:33)
[2016-08-27 04:00] VITALS: BP 141/66
--- NOTE | 2016-08-27 07:00 | NUR ---
PATIENT ALERT AND AWAKE, WITH EPISODES OF COMBATIVENESS DURING NURSING CARE, NO SOB, NO RESPIRATORY DISTRESS, ON 2LPM VIA NC, 02 SAT 98%, NOT IN APPARENT PAIN, NO FACIAL GRIMACING. RIGHT UPPER ARM MIDLINE IS PATENT AND INFUSING WELL, SUPRAPUBIC CATHETER DRAINING WELL OF WILLAM COLORED URINE. PROVIDED GOOD PERINEAL CARE, ALL NEEDS ATTENDED, CALL LIGHT WITHIN REACH.
--- NOTE | 2016-08-27 07:32 | NUR ---
MS RN NOTE PATIENT HAD OUTSTANDING UN SCANNED MEDICATION. MEDICATION FROM THE 08/23/16
[2016-08-27 08:00] VITALS: BP 105/57
--- NOTE | 2016-08-27 08:40 | NUR ---
RN NOTE PATIENT REFUSED LABS THIS AM. NURSING STAFF WILL CONTINUE TO FOLLOW
[2016-08-27] MEDS: MEROPENEM 500 MG in IV NS 0.9% 50 ML IV SCH ×2 (08:57→21:20)
[2016-08-27] MEDS: POLYVINYL ALCOHOL 15 ML BOTTLE EACHEYE SCH ×3 (08:58→17:00)
[2016-08-27] MEDS: CLOPIDOGREL BISULFATE 75 MG TABLET PO SCH (08:58)
[2016-08-27] MEDS ORDERED: FAMOTIDINE/PF INJ 20 MG/2 ML VIAL IV SCH (09:00)
--- NOTE | 2016-08-27 10:00 | NUR ---
RN NOTE PATIENT REFUSED REPOSITIONING.
[2016-08-27] MEDS: PANTOPRAZOLE 40 MG VIAL IV SCH (10:51)
[2016-08-27 11:57] LABS: BASOPHILS # (AUTO) 0.1 /CMM (0.0-0.2); BASOPHILS % (AUTO) 0.7 % (0.0-2.0); EOSINOPHILS # (AUTO) 0.8 /CMM (0.0-0.7); EOSINOPHILS % (AUTO) 5.9 % (0.0-6.0); HEMATOCRIT 32 % (39-51); HEMOGLOBIN 10.3 g/dL (13.5-17.5); LYMPHOCYTES # (AUTO) 2.3 /CMM (0.8-4.8); LYMPHOCYTES % (AUTO) 16.7 % (20.0-44.0); MEAN CORPUSCULAR HEMOGLOBIN 25 PG (26.0-33.0); MEAN CORPUSCULAR HGB CONC 32 g/dl (31.0-36.0); MEAN CORPUSCULAR VOLUME 79 fL (80-96); MONOCYTES # (AUTO) 0.7 /CMM (0.1-1.30); MONOCYTES % (AUTO) 5.4 % (2.0-12.0); NEUTROPHILS # (AUTO) 9.6 /CMM (1.8-8.9); NEUTROPHILS % (AUTO) 71.3 % (43.0-81.0); PLATELET COUNT (AUTO) 318 /CMM (150-450); RDW COEFFICIENT OF VARIATION 16.7 (11.5-15.0); RED BLOOD CELL COUNT(AUTO) 4.06 MIL/uL (4.5-6.0); WHITE BLOOD COUNT (AUTO) 13.5 K/uL (4.3-11.0)
--- NOTE | 2016-08-27 12:05 | NUR ---
SHERMAN ARREOLA PT REFUSED EYE DROPS x 2. PATIENT ALLOWED NURSING STAFF TO PREFORM ORAL CARE
[2016-08-27 13:13] LABS: CALCIUM, SERUM 8.1 mg/dL (8.5-10.1); CARBON DIOXIDE 27 mmol/L (21-32); CHLORIDE 113 mmol/L (98-107); GLUCOSE 97 mg/dL (74-106); MAGNESIUM 1.8 mg/dL (1.8-2.4); POTASSIUM 3.6 mmol/L (3.5-5.1); SODIUM SERUM 149 mmol/L (136-145); UREA NITROGEN, BLOOD 51 mg/dL (7-18)
[2016-08-27 16:00] VITALS: BP 119/47
[2016-08-27] MEDS: CHLORHEXIDINE GLUCONATE 15 ML UDC MM SCH (17:00)
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
--- NOTE | 2016-08-27 19:20 | NUR ---
RN MS INITIAL NOTE RECEIVED PT IN NO ACUTE DISTRESS IN BED. PT IS A/OX1 AND WHEN SPOKEN TO CAN MUMBLE WORDS BACK. PT IS RESTLESS AND AWAKE WITH NO NEEDS MADE KNOWN AT THIS TIME. PT IS ON RA WITH 02 SATURATION AT 98% WITH ADEQUATE CHEST RISE/FALL. SUPRAPUBIC CATHETER IS INTACT CLEAN AND PATENT. CHARLIE MIDLINE IS INTACT CLEAN AND PATENT WELL RAC 20G IV INTACT CLEAN AND PATENT. COMFORT AND SAFETY MEASURES PLACED AND ENSURED CALL LIGHT WAS AT BEDSIDE WITHIN REACH. WILL CONTINUE TO MONITOR THE PT FOR ANY CHANGES IN CONDITION.
[2016-08-27 20:00] VITALS: BP 132/53
[2016-08-27] MEDS ORDERED: SECONDARY IV SET 1 EA INFUS.SET MC ONE (21:19)
[2016-08-27] MEDS: ATORVASTATIN 10 MG TABLET PO SCH (22:00)
[2016-08-27] MEDS ORDERED: IV SET PRIMARY 1 EA INFUS.SET MC ONE (23:14)
[2016-08-27] MEDS ORDERED: IV NS 0.9% 0 ML IV ONE (23:14)
[2016-08-27] MEDS ORDERED: IV D5W 0 ML IV ONE (23:23)
[2016-08-28] VITALS: BP 118/57
[2016-08-28] MEDS: HEPARIN SODIUM, PORCINE 5000 UNITS/1 ML VIAL SQ SCH ×2 (02:30→16:00)
[2016-08-28 04:00] VITALS: BP 104/62
[2016-08-28 06:40] LABS: BASOPHILS # (AUTO) 0.1 /CMM (0.0-0.2); BASOPHILS % (AUTO) 0.4 % (0.0-2.0); EOSINOPHILS # (AUTO) 0.7 /CMM (0.0-0.7); HEMATOCRIT 35 % (39-51); LYMPHOCYTES # (AUTO) 2.4 /CMM (0.8-4.8); LYMPHOCYTES % (AUTO) 16.5 % (20.0-44.0); MEAN CORPUSCULAR HEMOGLOBIN 25 PG (26.0-33.0); MEAN CORPUSCULAR HGB CONC 31 g/dl (31.0-36.0); MEAN CORPUSCULAR VOLUME 80 fL (80-96); MONOCYTES # (AUTO) 0.9 /CMM (0.1-1.30); MONOCYTES % (AUTO) 6.2 % (2.0-12.0); NEUTROPHILS # (AUTO) 10.6 /CMM (1.8-8.9); NEUTROPHILS % (AUTO) 71.9 % (43.0-81.0); PLATELET COUNT (AUTO) 430 /CMM (150-450); RDW COEFFICIENT OF VARIATION 17.4 (11.5-15.0); WHITE BLOOD COUNT (AUTO) 14.7 K/uL (4.3-11.0)
--- NOTE | 2016-08-28 06:57 | NUR ---
RN MS CLOSING NOTE PT HAD NO CHANGE IN CONDITION DURING THE SHIFT. PT IS CLEAN DRY AND COMFORTABLE IN BED. PT WAS RESTLESS/COMBATIVE DURING ADLS'S BUT IS CALM NOW. MEDICATIONS WERE ADMINISTERED ORDERED AND IV FLUIDS RUNNING. CARDONA KEPT CLEAN AND PATENT WITH 800CC/HR TAKEN OUT. SUCTIONED NEEDED. ON RA WITH 02 SAT AT 96%. SAFETY AND COMFORT MEASURES PLACED AND MET. SIDE RAILS UP AND LOCKED, BED KEPT AT LOWEST POSITION. CALL LIGHT WITHIN EASY REACH. WILL ENDORSE CONTINUITY OF CARE TO AM NURSE.
[2016-08-28 06:58] LABS: ALANINE AMINOTRANSFERASE 25 U/L (12-78); ALKALINE PHOSPHATASE 118 U/L (46-116); ASPARTATE AMINOTRANSFERASE 33 U/L (15-37); BILIRUBIN,TOTAL 0.4 mg/dL (0.2-1.0); CALCIUM, SERUM 8.2 mg/dL (8.5-10.1); CARBON DIOXIDE 25 mmol/L (21-32); CHLORIDE 111 mmol/L (98-107); CREATININE 3.9 mg/dL (0.6-1.3); GLUCOSE 92 mg/dL (74-106); MAGNESIUM 1.8 mg/dL (1.8-2.4); PHOSPHORUS 5.9 mg/dL (2.5-4.9); POTASSIUM 3.2 mmol/L (3.5-5.1); SODIUM SERUM 147 mmol/L (136-145); UREA NITROGEN, BLOOD 51 mg/dL (7-18)
--- NOTE | 2016-08-28 07:42 | NUR ---
RN NOTES: INITIAL NOTES: PT RECEIVED SLEEPING IN BED. PT HAS NOTED PERIODS OF CONFUSION. MUMBLED WORDS. ON ROOM AIR. BREATHING PATTERN REGULAR & UNLABORED. IV SITE INTACT, DRESSING INTACT & DRY. RUNNING IV FLUIDS ORDER. SUPRAPUBIC CATHETER INTACT, DRAINING WELL WITH GRAVITY. NPO STATUS. SAFETY MEASURES OBSERVED. CALL LIGHT WITHIN REACH. WILL CONTINUE TO MONITOR.
[2016-08-28 08:00] VITALS: BP_SYST 103; BP_SYST 134; BP_DIAS 60; BP_DIAS 62
[2016-08-28] MEDS: POLYVINYL ALCOHOL 15 ML BOTTLE EACHEYE SCH ×3 (09:00→16:08)
[2016-08-28] MEDS: CLOPIDOGREL BISULFATE 75 MG TABLET PO SCH (09:00)
[2016-08-28] MEDS: MEROPENEM 500 MG in IV NS 0.9% 50 ML IV SCH ×2 (09:09→21:26)
[2016-08-28] MEDS: CHLORHEXIDINE GLUCONATE 15 ML UDC MM SCH ×2 (09:09→16:08)
[2016-08-28] MEDS: PANTOPRAZOLE 40 MG VIAL IV SCH (09:09)
[2016-08-28] MEDS ORDERED: SECONDARY IV SET 1 EA INFUS.SET MC ONE (09:15)
--- NOTE | 2016-08-28 14:39 | NUR ---
PATIENT COMFORTABLY RESTING ALL NEEDS ATTENDED TO, NO SOB OR DISTRESS NOTED AT THIS TIME NURSING STAFF WILL CONTINUE TO MONITOR.
[2016-08-28 16:00] VITALS: BP 107/44
[2016-08-28] MEDS: EPOETIN ALFA (10,000 UNIT) 10,000 UNIT/ML VIAL SQ SCH (16:05)
[2016-08-28] MEDS: Potassium Chloride 20 MEQ in IV D5W 1,000 ML IV PRN (16:31)
--- NOTE | 2016-08-28 16:34 | NUR ---
RN NOTE PATIENTS DAUGHTER CALLED IN REGARDS TO POSSIBLE G-TUBE PLACEMENT. DAUGHTER STATES SHE HAS DUO POWER OF SALVAGE WINDER OVER HER FATHER ALONG WITH HER MOTHER . PATIENT DAUGHTER BEATA IS CURRENTLY SPEAKING WITH CRESENCIO PAYNE IN REGARD TO THIS PROCEDURE AND FAMILY DECISION. RN WILL FOLLOW AND REPORT TO ONCOMING SHIFT
--- NOTE | 2016-08-28 18:15 | NUR ---
RN MS CLOSING NOTE PT HAD NO CHANGE IN CONDITION DURING THE SHIFT. PT IS CLEAN DRY AND COMFORTABLE IN BED. PT WAS RESTLESS/COMBATIVE DURING ADLS'S BUT IS CALM NOW. MEDICATIONS WERE ADMINISTERED ORDERED AND IV FLUIDS RUNNING. CARDONA KEPT CLEAN AND PATENT WITH 550CC/HR OUTPUT DARK COLORED URINE .PT STILL ON RA WITH 02 SAT AT 96%. SAFETY AND COMFORT MEASURES PLACED AND MET. SIDE RAILS UP AND LOCKED, BED KEPT AT LOWEST POSITION. CALL LIGHT WITHIN EASY REACH. WILL ENDORSE CONTINUITY OF CARE TONIGHT SHIFT NURSE. PT IV FLUID CHANGE TOP D5W WITH POTASSIUM DUE TO DECREASE IN LEVEL 80CC/HR
[2016-08-28 20:00] VITALS: BP_SYST 131; BP_SYST 137; BP_DIAS 65
[2016-08-28] MEDS: ATORVASTATIN 10 MG TABLET PO SCH (21:21)
[2016-08-29] MEDS: HEPARIN SODIUM, PORCINE 5000 UNITS/1 ML VIAL SQ SCH ×2 (03:00→14:54)
[2016-08-29 04:00] VITALS: BP 136/59
[2016-08-29 06:36] LABS: BASOPHILS # (AUTO) 0.1 /CMM (0.0-0.2); BASOPHILS % (AUTO) 0.5 % (0.0-2.0); EOSINOPHILS # (AUTO) 0.8 /CMM (0.0-0.7); EOSINOPHILS % (AUTO) 5.8 % (0.0-6.0); HEMATOCRIT 34 % (39-51); HEMOGLOBIN 11.1 g/dL (13.5-17.5); LYMPHOCYTES # (AUTO) 2.7 /CMM (0.8-4.8); LYMPHOCYTES % (AUTO) 19.1 % (20.0-44.0); MEAN CORPUSCULAR HEMOGLOBIN 26 PG (26.0-33.0); MEAN CORPUSCULAR HGB CONC 32 g/dl (31.0-36.0); MEAN CORPUSCULAR VOLUME 80 fL (80-96); MONOCYTES # (AUTO) 1.4 /CMM (0.1-1.30); MONOCYTES % (AUTO) 10.1 % (2.0-12.0); NEUTROPHILS # (AUTO) 9.1 /CMM (1.8-8.9); NEUTROPHILS % (AUTO) 64.5 % (43.0-81.0); PLATELET COUNT (AUTO) 429 /CMM (150-450); RDW COEFFICIENT OF VARIATION 17.3 (11.5-15.0)
[2016-08-29 07:03] LABS: ALANINE AMINOTRANSFERASE 21 U/L (12-78); ALBUMIN 1.9 g/dL (3.4-5.0); ALKALINE PHOSPHATASE 120 U/L (46-116); ASPARTATE AMINOTRANSFERASE 33 U/L (15-37); BILIRUBIN,TOTAL 0.4 mg/dL (0.2-1.0); CALCIUM, SERUM 8.1 mg/dL (8.5-10.1); CARBON DIOXIDE 27 mmol/L (21-32); CHLORIDE 110 mmol/L (98-107); CREATININE 3.8 mg/dL (0.6-1.3); GLUCOSE 93 mg/dL (74-106); MAGNESIUM 1.7 mg/dL (1.8-2.4); PHOSPHORUS 5.7 mg/dL (2.5-4.9); POTASSIUM 3.4 mmol/L (3.5-5.1); SODIUM SERUM 145 mmol/L (136-145); UREA NITROGEN, BLOOD 47 mg/dL (7-18)
[2016-08-29 08:00] VITALS: BP 137/80
[2016-08-29] MEDS: MEROPENEM 500 MG in IV NS 0.9% 50 ML IV SCH ×2 (08:17→20:21)
[2016-08-29] MEDS: CHLORHEXIDINE GLUCONATE 15 ML UDC MM SCH ×2 (08:17→14:49)
[2016-08-29] MEDS: CLOPIDOGREL BISULFATE 75 MG TABLET PO SCH (08:17)
[2016-08-29] MEDS: PANTOPRAZOLE 40 MG VIAL IV SCH (08:17)
[2016-08-29] MEDS: POLYVINYL ALCOHOL 15 ML BOTTLE EACHEYE SCH ×3 (08:19→14:49)
--- NOTE | 2016-08-29 10:14 | NUR ---
RN NOTE PATIENT COMFORTABLY RESTING ALL NEEDS ATTENDED TO, NO SOB OR DISTRESS NOTED AT THIS TIME NURSING STAFF WILL CONTINUE TO MONITOR.
--- NOTE | 2016-08-29 12:29 | NUR ---
rn note oral care provided for patient. difficulty observed during rinse pt began coughing nursing staff will follow
--- NOTE | 2016-08-29 12:30 | NUR ---
RN NOTE Rn spoke with Renetta DUPONT in regard to g-tube placement Assembler advised nursing staff that the g-tube placement my be on Tuesday
[2016-08-29] MEDS: Potassium Chloride 20 MEQ in IV D5W 1,000 ML IV PRN (12:32)
[2016-08-29] MEDS: Magnesium 1GM/D5W 100ML PREMIX 100 ML IV SCH ×2 (14:42→21:22)
[2016-08-29] MEDS: POTASSIUM CL. PREMIX PERIPHER. 50 ML IV SCH ×4 (14:46→19:09)
[2016-08-29 16:00] VITALS: BP 129/60
--- NOTE | 2016-08-29 19:25 | NUR ---
RN MS CLOSING NOTE PT HAD NO CHANGE IN CONDITION DURING THE SHIFT. PT IS CLEAN DRY AND COMFORTABLE IN BED. PT WAS STILL VERY RESTLESS/COMBATIVE DURING ADLS'S BUT IS CALM NOW. MEDICATIONS WERE ADMINISTERED ORDERED AND IV FLUIDS RUNNING. CARDONA KEPT CLEAN AND PATENT WITH 650CC/HR OUTPUT DARK COLORED URINE .PT STILL ON RA WITH 02 SAT AT 95%. SAFETY AND COMFORT MEASURES PLACED AND MET. SIDE RAILS UP AND LOCKED, BED KEPT AT LOWEST POSITION. CALL LIGHT WITHIN EASY REACH. WILL ENDORSE CONTINUITY OF CARE TONIGHT SHIFT NURSE. PT IV FLUID CHANGE TOP D5W WITH POTASSIUM DUE TO DECREASE IN LEVEL 80CC/HR, PT IS CURRENTLY RECEIVING HIS LAS BAG OF POTASSIUM AND LAST MAGNESIUM ADMINISTRATION ENDORSED TO THE PM NURSE
--- NOTE | 2016-08-29 19:30 | NUR ---
RN OPENING NOTES RECEIVED REPORT FROM KIMBER WHITAKER. PATIENT IN BED, A/O X1. NO RESPIRATORY DISTRESS NOTED, BREATHING EVEN AND UNLABORED. INCONTINENT WITH DIAPER AND SUPRAPUBIC CATH INTACT. NPO STATUS. RIGHT UPPER MIDLINE CDI W/ D5W WITH 20 MEQ KCL @ 80 ML/HR. SIDE RAILS UP, BED LOCKED AND IN LOWEST POSITION. WILL CONTINUE TO MONITOR.
[2016-08-29 20:00] VITALS: BP 143/73
[2016-08-29] MEDS ORDERED: Magnesium 1GM/D5W 100ML PREMIX 100 ML IV ONE (20:24)
[2016-08-29] MEDS: ATORVASTATIN 10 MG TABLET PO SCH (21:23)
[2016-08-29] MEDS ORDERED: ACETAMINOPHEN 650 MG/SUPP.RECT RC ONE (21:24)
[2016-08-29] MEDS: ACETAMINOPHEN 650 MG/SUPP.RECT RC PRN (21:33)
[2016-08-30] MEDS: HEPARIN SODIUM, PORCINE 5000 UNITS/1 ML VIAL SQ SCH ×2 (03:20→15:00)
[2016-08-30 04:00] VITALS: BP 144/60
[2016-08-30 07:03] LABS: EOSINOPHILS # (AUTO) 0.1 /CMM (0.0-0.7); EOSINOPHILS % (AUTO) 0.4 % (0.0-6.0); HEMATOCRIT 36 % (39-51); HEMOGLOBIN 11.4 g/dL (13.5-17.5); LYMPHOCYTES # (AUTO) 2.2 /CMM (0.8-4.8); MEAN CORPUSCULAR HEMOGLOBIN 25 PG (26.0-33.0); MEAN CORPUSCULAR HGB CONC 32 g/dl (31.0-36.0); MEAN CORPUSCULAR VOLUME 80 fL (80-96); MONOCYTES # (AUTO) 1.7 /CMM (0.1-1.30); MONOCYTES % (AUTO) 7.5 % (2.0-12.0); NEUTROPHILS # (AUTO) 18.3 /CMM (1.8-8.9); NEUTROPHILS % (AUTO) 82.1 % (43.0-81.0); PLATELET COUNT (AUTO) 404 /CMM (150-450); RDW COEFFICIENT OF VARIATION 17.3 (11.5-15.0); RED BLOOD CELL COUNT(AUTO) 4.49 MIL/uL (4.5-6.0); WHITE BLOOD COUNT (AUTO) 22.3 K/uL (4.3-11.0)
--- NOTE | 2016-08-30 07:06 | NUR ---
RN CLOSING NOTES: PATIENT IN BED, DOZING INTERMITTENTLY. NO RESPIRATORY DISTRESS NOTED W/ O2 @ 2LPM VIA NC. RIGHT UPPER MIDLINE W/ D5W W/ 20MEQ KCL RUNNING @ 80 ML/HR TOLERATED WELL. NO ASE FROM ATB THERAPY. AFEBRILE @ THIS TIME, TEMP @ 0400 97.5. REMAINED NPO. KEPT PATIENT CLEAN AND DRY. PHOTO TAKEN. WILL ENDORSE TO AM NURSE.
[2016-08-30 07:22] LABS: INR 1.16 (0.87-1.13); PROTHROMBIN TIME 12.5 SECS (9.5-12.7)
[2016-08-30 07:26] LABS: CALCIUM, SERUM 8.4 mg/dL (8.5-10.1); CARBON DIOXIDE 23 mmol/L (21-32); CHLORIDE 113 mmol/L (98-107); CREATININE 3.9 mg/dL (0.6-1.3); GLUCOSE 116 mg/dL (74-106); MAGNESIUM 2.1 mg/dL (1.8-2.4); PHOSPHORUS 5.2 mg/dL (2.5-4.9); POTASSIUM 4.1 mmol/L (3.5-5.1); SODIUM SERUM 147 mmol/L (136-145); UREA NITROGEN, BLOOD 51 mg/dL (7-18)
[2016-08-30 08:00] VITALS: BP 158/63
--- NOTE | 2016-08-30 08:30 | NUR ---
Pt in bed awake, alert to name nonverball, suprapubic cath in place draining tea color urine, ivf infusing, plan of care gt placement tomorrow will f/u with md for orders and time.
[2016-08-30 09:00] VITALS: BP 179/59
[2016-08-30] MEDS: CLOPIDOGREL BISULFATE 75 MG TABLET PO SCH (09:00)
[2016-08-30] MEDS: PANTOPRAZOLE 40 MG VIAL IV SCH (09:28)
[2016-08-30] MEDS: POLYVINYL ALCOHOL 15 ML BOTTLE EACHEYE SCH ×3 (09:28→16:42)
[2016-08-30] MEDS: CHLORHEXIDINE GLUCONATE 15 ML UDC MM SCH ×2 (09:28→16:41)
[2016-08-30] MEDS: Potassium Chloride 20 MEQ in IV D5W 1,000 ML IV PRN (09:28)
[2016-08-30] MEDS: MEROPENEM 500 MG in IV NS 0.9% 50 ML IV SCH ×2 (09:28→21:49)
--- NOTE | 2016-08-30 13:30 | NUR ---
CN spoke with pt's PCP and comfirm that gt placement will be done tomorrow am by 0700, awaiting for orders so family can sign consent.
[2016-08-30 14:14] LABS: *ANCA ATYPICAL p-ANCA <1:20 titer (Neg:<1:20); *ANCA CYTOPLASMIC (C-ANCA) <1:20 titer (Neg:<1:20); *ANCA PERINUCLEAR (P-ANCA) <1:20 titer (Neg:<1:20); *ANCANTIMYELOPEROXIDASE (MPO) <9.0 U/mL (0.0-9.0); *ANCANTIPROTEINASE 3 (PR-3) AB <3.5 U/mL (0.0-3.5)
[2016-08-30 16:23] VITALS: BP 128/96
--- NOTE | 2016-08-30 18:21 | NUR ---
Pt's daughter call by 1400and asking questions regarding GT placement was explained to her that md need to explained to her procedure so she can sign consent, pt's daughter came by 1730 GI MD was called by CN so md can talk to family regarding procedure, we were awaiting for call back since md did not call back, pt's daughter wants to talk to md prior signing consent.
--- NOTE | 2016-08-30 19:45 | NUR ---
RN NOTES F/U PRIMO SUPERVISOR BOILER REPAIR TO CALLED FAMILY AND EXPLAINED THE PROCEDURE OF PEG FAMILY WANTED. SUPERVISOR BOILER REPAIR INFORMED US THAT FAMILY AGREED FOR THE PROCEDURE. CALLED AND VERIED BEATA DAUGHTER FOR CONSENT WITNESS BY LUZ MARIA WHITAKER. CONSENT SIGNED BY TO RN VIA PHONE.
[2016-08-30 20:00] VITALS: BP 139/62
--- NOTE | 2016-08-30 20:05 | NUR ---
RN NOTES DR. RHOADES CAME WITH STAT LAB ORDERS AND INFORMED US THAT PEG PLACEMENT WILL BE CANCELLED TOMORROW. AND SHE WANTS TO MAKE SURE THAT PT DON'T HAVE ANY DIFF PROBLEM SINCE PT GOT FEVER LAST NIGHT AND LAB VALUES HERNAN WBC SUDDENLY ELEVATED. NOTED AND WILL ACKNOWLEDGE ORDER.
--- NOTE | 2016-08-30 20:31 | NUR ---
RN NOTES CALLED AND SPOKE TO KERRY DUPONT REGARDING DR RHOADES'S PLAN AND THAT SHE WAS AWARE OF IT . PER KERRY TUMBLING MACHINE OPERATOR TO CONTINUE ANTI COAGULANT UNTIL CLEAR FOR SURGERY AGAIN. NOTED AND ACKNOWLEDGE ORDERS.
[2016-08-30 20:39] LABS: BILIRUBIN,DIRECT 0.2 mg/dL (0.0-0.2); BILIRUBIN,TOTAL 0.6 mg/dL (0.2-1.0); TOTAL PROTEIN, SERUM 8.3 g/dL (6.4-8.2)
--- NOTE | 2016-08-30 21:00 | NUR ---
RN NOTES LAB DRAWN AND TRIED TO GET BLOOD CULTURE FROM MIDLINE PER MD BUT NO BLOOD RETURN. DR. RHOADES IS IN THE STATION AND INFORMED PER MD TO GET SECOND BLOOD CULTURE BY THE TECHNICAL TESTING ENGINEER BEFORE THE NEW ATB GIVE. NOTED. CALLED AND INFORMED LAB.
[2016-08-30] MEDS: ATORVASTATIN 10 MG TABLET PO SCH (21:50)
[2016-08-30] MEDS: LINEZOLID RTU BAG 600 MG in PREMIX 1 EA IV SCH (21:51)
[2016-08-30] MEDS: MICAFUNGIN SODIUM 100 MG in IV NS 0.9% 100 ML IV SCH (21:55)
[2016-08-31] MEDS: ACETAMINOPHEN 650 MG/SUPP.RECT RC PRN (01:15)
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
[2016-08-31] MEDS: HEPARIN SODIUM, PORCINE 5000 UNITS/1 ML VIAL SQ SCH (03:11)
[2016-08-31] MEDS: Potassium Chloride 20 MEQ in IV D5W 1,000 ML IV PRN ×2 (03:19→17:27)
[2016-08-31 04:00] VITALS: BP 145/62
[2016-08-31 04:18] LABS: APPEARANCE,URINE CLOUDY (CLEAR); BILIRUBIN,URINE 1+ (NEGATIVE); BLOOD, URINE 3+ Ery/uL (NEGATIVE); COLOR,URINE BROWN (YELLOW); KETONES,URINE NEGATIVE (NEGATIVE); LEUKOCYTE ESTERASE ,URINE TRACE (NEGATIVE); NITRITE, URINE NEGATIVE (NEGATIVE); PH,URINE 5.5 (5.0-8.0); PROTEIN,URINE 3+ mg/dl (NEGATIVE); UGLUCOSE NEGATIVE (NEGATIVE); UROBILINOGEN,URINE 0.2 EU/dL (0.2)
[2016-08-31 05:44] LABS: BACTERIA,URINE 2+ /HPF (None Seen); RBC,URINE 81-100 /HPF (0-2); SQUAMOUS EPITHELIAL CELL,UR Rare /HPF (None Seen)
--- NOTE | 2016-08-31 07:05 | NUR ---
RN CLOSING NOTES: PATIENT IN BED, SLEPT INTERMITTENTLY. NO RESPIRATORY DISTRESS NOTED, O2 SAT @ 98% ON 02 2LPM. AFEBRILE, LAST TEMP 98.9 @ 0400 AFTER COOLING MEASURES PROVIDED AND TYLENOL SUPP ADMINISTERED. NO S/S OF PAIN OR DISCOMFORT @ THIS TIME. RAC IV SITE DISCONTINUED D/T TO LEAKING, NO COMPLICATIONS NOTED. KEPT CLEAN AND DRY. WILL ENDORSE CONTUINITY OF CARE TO AM NURSE.
[2016-08-31 08:00] VITALS: BP 143/98
[2016-08-31 08:47] LABS: BASOPHILS # (AUTO) 0.2 /CMM (0.0-0.2); BASOPHILS % (AUTO) 0.8 % (0.0-2.0); EOSINOPHILS # (AUTO) 0.3 /CMM (0.0-0.7); EOSINOPHILS % (AUTO) 1.5 % (0.0-6.0); HEMATOCRIT 34 % (39-51); HEMOGLOBIN 10.8 g/dL (13.5-17.5); LYMPHOCYTES # (AUTO) 2.6 /CMM (0.8-4.8); LYMPHOCYTES % (AUTO) 13.9 % (20.0-44.0); MEAN CORPUSCULAR HEMOGLOBIN 25 PG (26.0-33.0); MEAN CORPUSCULAR HGB CONC 32 g/dl (31.0-36.0); MEAN CORPUSCULAR VOLUME 79 fL (80-96); MONOCYTES # (AUTO) 1.4 /CMM (0.1-1.30); MONOCYTES % (AUTO) 7.5 % (2.0-12.0); NEUTROPHILS # (AUTO) 14.4 /CMM (1.8-8.9); NEUTROPHILS % (AUTO) 76.3 % (43.0-81.0); PLATELET COUNT (AUTO) 404 /CMM (150-450); RDW COEFFICIENT OF VARIATION 17.2 (11.5-15.0); RED BLOOD CELL COUNT(AUTO) 4.28 MIL/uL (4.5-6.0); WHITE BLOOD COUNT (AUTO) 18.9 K/uL (4.3-11.0)
[2016-08-31] MEDS: CLOPIDOGREL BISULFATE 75 MG TABLET PO SCH (09:00)
[2016-08-31 09:16] LABS: CALCIUM, SERUM 8.2 mg/dL (8.5-10.1); CARBON DIOXIDE 22 mmol/L (21-32); CHLORIDE 110 mmol/L (98-107); CREATININE 3.9 mg/dL (0.6-1.3); GLUCOSE 101 mg/dL (74-106); MAGNESIUM 1.9 mg/dL (1.8-2.4); PHOSPHORUS 5.6 mg/dL (2.5-4.9); POTASSIUM 3.8 mmol/L (3.5-5.1); SODIUM SERUM 145 mmol/L (136-145); UREA NITROGEN, BLOOD 50 mg/dL (7-18)
[2016-08-31] MEDS: MEROPENEM 500 MG in IV NS 0.9% 50 ML IV SCH ×2 (09:45→21:14)
[2016-08-31] MEDS: PANTOPRAZOLE 40 MG VIAL IV SCH (09:48)
[2016-08-31] MEDS: CHLORHEXIDINE GLUCONATE 15 ML UDC MM SCH ×2 (09:48→17:27)
[2016-08-31] MEDS: POLYVINYL ALCOHOL 15 ML BOTTLE EACHEYE SCH ×3 (09:49→17:28)
[2016-08-31] MEDS: LINEZOLID RTU BAG 600 MG in PREMIX 1 EA IV SCH ×2 (11:54→23:03)
[2016-08-31 16:00] VITALS: BP 150/64
[2016-08-31] MEDS: EPOETIN ALFA (10,000 UNIT) 10,000 UNIT/ML VIAL SQ SCH (17:27)
--- NOTE | 2016-08-31 19:30 | NUR ---
RN OPENING NOTES RECEIVED REPORT FROM MURTAZA WHITAKER. PATIENT A/A/O X1 WITH CONFUSION. SPEECH GARBLED, DIFFICULTY COMMUNICATING NEEDS. RESPONSIVE TO PAIN, VERBAL AND TACTILE STIMULI. NO RESPIRATORY DISTRESS NOTED, ON 02 2LPM. RIGHT UPPER MIDLINE INTACT AND PATENT W/ D5W W/ 20 MEQ KCL RUNNING @ 80 ML/HR. SUPRAPUBIC CATH INTACT AND DRAINING PINKISH URINE. BOWEL SOUNDS PRESENT IN ALL QUADRANTS. SIDE RAILS UP, BED LOCKED AND IN LOWEST POSITION. WILL CONTINUE TO MONITOR.
[2016-08-31 20:00] VITALS: BP 126/53
[2016-08-31] MEDS: ATORVASTATIN 10 MG TABLET PO SCH (22:00)
[2016-08-31] MEDS: MICAFUNGIN SODIUM 100 MG in IV NS 0.9% 100 ML IV SCH (23:05)
[2016-09-01 04:00] VITALS: BP 95/45
[2016-09-01 06:44] LABS: BASOPHILS % (AUTO) 0.1 % (0.0-2.0); EOSINOPHILS # (AUTO) 0.6 /CMM (0.0-0.7); EOSINOPHILS % (AUTO) 3.4 % (0.0-6.0); HEMATOCRIT 32 % (39-51); HEMOGLOBIN 10.3 g/dL (13.5-17.5); LYMPHOCYTES # (AUTO) 2.6 /CMM (0.8-4.8); LYMPHOCYTES % (AUTO) 15.7 % (20.0-44.0); MEAN CORPUSCULAR HEMOGLOBIN 26 PG (26.0-33.0); MEAN CORPUSCULAR HGB CONC 32 g/dl (31.0-36.0); MEAN CORPUSCULAR VOLUME 80 fL (80-96); MONOCYTES # (AUTO) 1.4 /CMM (0.1-1.30); MONOCYTES % (AUTO) 8.5 % (2.0-12.0); NEUTROPHILS # (AUTO) 11.8 /CMM (1.8-8.9); NEUTROPHILS % (AUTO) 72.3 % (43.0-81.0); PLATELET COUNT (AUTO) 430 /CMM (150-450); RDW COEFFICIENT OF VARIATION 17.1 (11.5-15.0); RED BLOOD CELL COUNT(AUTO) 3.99 MIL/uL (4.5-6.0); WHITE BLOOD COUNT (AUTO) 16.4 K/uL (4.3-11.0)
--- NOTE | 2016-09-01 07:05 | NUR ---
RN CLOSING NOTES: PATIENT AWAKE, RESTING IN BED. NO S/S OF RESPIRATORY DISTRESS OR SOB NOTED @ THIS TIME. 02 2LPM VIA NC TOLERATED WELL. CHARLIE MIDLINE INTACT AND PATENT. TOLERATED FLUIDS D5W W/ 20 MEQ KCL. AFEBRILE THROUGHOUT SHIFT. WILL ENDORSE CONTINUITY OF CARE TO AM NURSE.
[2016-09-01 07:11] LABS: CALCIUM, SERUM 8.1 mg/dL (8.5-10.1); CARBON DIOXIDE 21 mmol/L (21-32); CHLORIDE 109 mmol/L (98-107); GLUCOSE 95 mg/dL (74-106); POTASSIUM 4.7 mmol/L (3.5-5.1); SODIUM SERUM 143 mmol/L (136-145); UREA NITROGEN, BLOOD 49 mg/dL (7-18)
[2016-09-01 08:00] VITALS: BP 151/36
[2016-09-01 08:41] LABS: EOSINOPHILS % (MANUAL) 1 % (0-4); LYMPHOCYTES % (MANUAL) 16 % (16-48); MONOCYTES % (MANUAL) 8 % (0-11.0); NEUTROPHILS % (MANUAL) 75 (42-76)
[2016-09-01] MEDS: CHLORHEXIDINE GLUCONATE 15 ML UDC MM SCH ×2 (08:53→17:59)
[2016-09-01] MEDS: MEROPENEM 500 MG in IV NS 0.9% 50 ML IV SCH ×2 (08:53→20:18)
[2016-09-01] MEDS: Potassium Chloride 20 MEQ in IV D5W 1,000 ML IV PRN (08:53)
[2016-09-01] MEDS: POLYVINYL ALCOHOL 15 ML BOTTLE EACHEYE SCH ×3 (08:54→18:00)
[2016-09-01] MEDS: CLOPIDOGREL BISULFATE 75 MG TABLET PO SCH (08:54)
[2016-09-01] MEDS: ACETAMINOPHEN 650 MG/SUPP.RECT RC PRN (08:55)
[2016-09-01] MEDS: PANTOPRAZOLE 40 MG VIAL IV SCH (09:00)
[2016-09-01] MEDS: LINEZOLID RTU BAG 600 MG in PREMIX 1 EA IV SCH ×2 (11:06→20:58)
[2016-09-01 16:00] VITALS: BP 123/52
[2016-09-01 19:30] VITALS: BP 143/61
--- NOTE | 2016-09-01 19:30 | NUR ---
MS RN INITIAL NOTE RECEIVED PT AWAKE, ORIENTED X1, HE IS CALM AND COOPERATIVE, NO GRIMACING NOTED OR RESPIRATORY DISTRESS DURING PHYSICAL ASSESSMENT, PT IS CLEAN/DRY AND COMFORTABLE, SUPRAPUBIC CATHETER IN PLACE, INTACT AND PATENT, SAFETY MEASURES WILL BE MAINTAINED AT ALL TIMES, NEEDS WILL BE ANTICIPATED AND ATTENDED TO PROMPTLY.
[2016-09-01 20:00] VITALS: BP 143/61
[2016-09-01] MEDS: ATORVASTATIN 10 MG TABLET PO SCH ×2 (20:57→22:00)
[2016-09-01] MEDS: MICAFUNGIN SODIUM 100 MG in IV NS 0.9% 100 ML IV SCH (22:07)
[2016-09-02 04:00] VITALS: BP 139/57
[2016-09-02] MEDS: Potassium Chloride 20 MEQ in IV D5W 1,000 ML IV PRN (05:04)
--- NOTE | 2016-09-02 06:31 | NUR ---
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
--- NOTE | 2016-09-02 07:55 | NUR ---
RN INITIAL NOTES PT IS IN BED, NO S/SX OF RESPIRATORY DISTRESS NOTED, A/O X1, ON NC 2L, SATURATING WELL, IV SITES FLUSHED AND PATENT, SUPRAPUBIC CATH IS PATENT AND DRAINING YELLOW URINE. NPO - ON D5W@ 80ML/HR. ASSISTED PT WITH REPOSITIONING. WILL CONTINUE TO MONITOR. SIDE RAILS UP, BED LOCKED AND IN LOWEST POSITION,
[2016-09-02 08:00] VITALS: BP_SYST 113; BP_DIAS 38; BP_DIAS 73
[2016-09-02] MEDS: CLOPIDOGREL BISULFATE 75 MG TABLET PO SCH ×3 (09:00→10:13)
--- NOTE | 2016-09-02 09:00 | NUR ---
RN NOTES 9AM MEDS PO NOT GIVEN - NPO DIAGNOSIS
[2016-09-02] MEDS: CHLORHEXIDINE GLUCONATE 15 ML UDC MM SCH ×2 (10:08→17:12)
[2016-09-02] MEDS: MEROPENEM 500 MG in IV NS 0.9% 50 ML IV SCH ×2 (10:09→20:14)
[2016-09-02] MEDS: PANTOPRAZOLE 40 MG VIAL IV SCH (10:09)
[2016-09-02] MEDS: POLYVINYL ALCOHOL 15 ML BOTTLE EACHEYE SCH ×3 (10:10→17:12)
[2016-09-02] MEDS: LINEZOLID RTU BAG 600 MG in PREMIX 1 EA IV SCH ×2 (10:21→21:07)
--- NOTE | 2016-09-02 12:00 | NUR ---
RN NOTES PER DR RHOADES, WILL ORDER CT SCAN ABD D/T MASS IN LIVER- WILL CONSULT WITH GI MD PRIOR TO PEG PLACEMENT.
[2016-09-02 13:32] LABS: BASOPHILS # (AUTO) 0.1 /CMM (0.0-0.2); BASOPHILS % (AUTO) 0.6 % (0.0-2.0); EOSINOPHILS # (AUTO) 0.4 /CMM (0.0-0.7); EOSINOPHILS % (AUTO) 3.3 % (0.0-6.0); HEMATOCRIT 33 % (39-51); LYMPHOCYTES # (AUTO) 1.7 /CMM (0.8-4.8); LYMPHOCYTES % (AUTO) 13.7 % (20.0-44.0); MEAN CORPUSCULAR HEMOGLOBIN 24 PG (26.0-33.0); MEAN CORPUSCULAR HGB CONC 31 g/dl (31.0-36.0); MEAN CORPUSCULAR VOLUME 79 fL (80-96); MONOCYTES # (AUTO) 1.1 /CMM (0.1-1.30); MONOCYTES % (AUTO) 8.9 % (2.0-12.0); NEUTROPHILS # (AUTO) 9.3 /CMM (1.8-8.9); NEUTROPHILS % (AUTO) 73.5 % (43.0-81.0); PLATELET COUNT (AUTO) 361 /CMM (150-450); RDW COEFFICIENT OF VARIATION 17.8 (11.5-15.0); RED BLOOD CELL COUNT(AUTO) 4.13 MIL/uL (4.5-6.0); WHITE BLOOD COUNT (AUTO) 12.7 K/uL (4.3-11.0)
[2016-09-02 16:00] VITALS: BP 111/54
[2016-09-02] MEDS: EPOETIN ALFA (10,000 UNIT) 10,000 UNIT/ML VIAL SQ SCH (17:12)
--- NOTE | 2016-09-02 19:30 | NUR ---
RN CLOSING NOTES NO SIGNIFICANT CHANGES DURING AM 12HOUR SHIFT. TOLERATING NC 2L OF O2. CARDONA IS DRAINING AND PATENT. PT IS STILL ON NPO, ON IV HYDRATION AND TOLERATING IT WELL. ALL MEDS GIVEN ORDERED, PT IS AFEBRILE AND NO S/SX OF ANY RESPIRATORY DISTRESS NOTED. ENDORSED TO NIGHT NURSE FOR CONTINUATION OF CARE.
[2016-09-02 20:00] VITALS: BP 120/73
--- NOTE | 2016-09-02 20:20 | NUR ---
RN INITIAL NOTES RECEIVED PT IS IN BED, NO S/SX OF RESPIRATORY DISTRESS NOTED, A/O X1, WITH EPISODE OF CONFUSION NOTED, ON NC 2L, SATURATING WELL, IV SITES FLUSHED AND PATENT, SUPRAPUBIC CATH IS PATENT AND DRAINING YELLOW URINE. NPO - ON D5W@ 80ML/HR. ASSISTED PT WITH REPOSITIONING. WILL CONTINUE TO MONITOR. SIDE RAILS UP, BED LOCKED AND IN LOWEST POSITION.
[2016-09-02] MEDS: MICAFUNGIN SODIUM 100 MG in IV NS 0.9% 100 ML IV SCH (23:15)
[2016-09-03] VITALS: BP 120/73
--- NOTE | 2016-09-03 00:36 | NUR ---
LIPTOR 10 MG NOT GIVEN PT NPO AT THIS TIME.
[2016-09-03 04:00] VITALS: BP 126/73
[2016-09-03] MEDS: Potassium Chloride 20 MEQ in IV D5W 1,000 ML IV PRN ×2 (04:38→21:11)
--- NOTE | 2016-09-03 06:19 | NUR ---
RN CLOSING NOTES ENDORSED PT IS IN BED, NO S/SX OF RESPIRATORY DISTRESS NOTED, A/O X1, WITH EPISODE OF CONFUSION NOTED, ON NC 2L, SATURATING WELL, IV SITES FLUSHED AND PATENT, SUPRAPUBIC CATH IS PATENT AND DRAINING YELLOW URINE. NPO - ON D5W@ 80ML/HR. ASSISTED PT WITH REPOSITIONING. WILL CONTINUE TO MONITOR. SIDE RAILS UP, BED LOCKED AND IN LOWEST POSITION
[2016-09-03 07:12] LABS: BASOPHILS # (AUTO) 0.1 /CMM (0.0-0.2); BASOPHILS % (AUTO) 0.6 % (0.0-2.0); EOSINOPHILS # (AUTO) 0.5 /CMM (0.0-0.7); EOSINOPHILS % (AUTO) 4.1 % (0.0-6.0); HEMATOCRIT 31 % (39-51); HEMOGLOBIN 10.1 g/dL (13.5-17.5); LYMPHOCYTES # (AUTO) 1.7 /CMM (0.8-4.8); LYMPHOCYTES % (AUTO) 13.5 % (20.0-44.0); MEAN CORPUSCULAR HEMOGLOBIN 25 PG (26.0-33.0); MEAN CORPUSCULAR HGB CONC 32 g/dl (31.0-36.0); MEAN CORPUSCULAR VOLUME 79 fL (80-96); MONOCYTES # (AUTO) 1.3 /CMM (0.1-1.30); MONOCYTES % (AUTO) 10.3 % (2.0-12.0); NEUTROPHILS # (AUTO) 9.1 /CMM (1.8-8.9); NEUTROPHILS % (AUTO) 71.5 % (43.0-81.0); PLATELET COUNT (AUTO) 403 /CMM (150-450); RDW COEFFICIENT OF VARIATION 17.5 (11.5-15.0); RED BLOOD CELL COUNT(AUTO) 3.99 MIL/uL (4.5-6.0); WHITE BLOOD COUNT (AUTO) 12.7 K/uL (4.3-11.0)
--- NOTE | 2016-09-03 07:49 | NUR ---
RN INITIAL NOTES PT IS IN BED, NO S/SX OF RESPIRATORY DISTRESS NOTED, A/O X2, ON NC 2L, CHARLIE MIDLINE FLUSHED AND PATENT, SUPRAPUBIC CATH IS PATENT AND DRAINING YELLOW URINE. STILL NPO - ON D5W@ 80ML/HR IV FLUID. AFEBRILE. SIDE RAILS UP, BED LOCKED AND IN LOWEST POSITION,CALL LIGHT WITHIN REACH, WILL CONTINUE TO MONITOR.
[2016-09-03 07:56] LABS: ALANINE AMINOTRANSFERASE 14 U/L (12-78); ALBUMIN 1.8 g/dL (3.4-5.0); ALKALINE PHOSPHATASE 117 U/L (46-116); ASPARTATE AMINOTRANSFERASE 33 U/L (15-37); BILIRUBIN,TOTAL 0.4 mg/dL (0.2-1.0); CALCIUM, SERUM 7.9 mg/dL (8.5-10.1); CARBON DIOXIDE 21 mmol/L (21-32); CHLORIDE 106 mmol/L (98-107); CREATININE 3.8 mg/dL (0.6-1.3); GLUCOSE 100 mg/dL (74-106); POTASSIUM 4.4 mmol/L (3.5-5.1); SODIUM SERUM 138 mmol/L (136-145); TOTAL PROTEIN, SERUM 7.4 g/dL (6.4-8.2); UREA NITROGEN, BLOOD 43 mg/dL (7-18)
[2016-09-03 08:00] VITALS: BP 125/79
[2016-09-03] MEDS: POLYVINYL ALCOHOL 15 ML BOTTLE EACHEYE SCH ×3 (08:13→18:14)
[2016-09-03] MEDS: MEROPENEM 500 MG in IV NS 0.9% 50 ML IV SCH ×2 (08:13→19:59)
[2016-09-03] MEDS: LINEZOLID RTU BAG 600 MG in PREMIX 1 EA IV SCH ×2 (08:13→20:48)
[2016-09-03] MEDS: CHLORHEXIDINE GLUCONATE 15 ML UDC MM SCH ×2 (08:15→18:12)
[2016-09-03] MEDS: CLOPIDOGREL BISULFATE 75 MG TABLET PO SCH (08:16)
--- NOTE | 2016-09-03 09:09 | NUR ---
PER [facility] TO PROCEED WITH PEG PLACEMENT, WILL CALL DR PINO [phone] Addendum: 09/03/16 at 1222 by ELMA MILES RN DR PINO WILL NOT BE THE ANASTASIIA MEIER.
[2016-09-03] MEDS: PANTOPRAZOLE 40 MG VIAL IV SCH (10:05)
[2016-09-03 16:00] VITALS: BP 135/58
--- NOTE | 2016-09-03 19:18 | NUR ---
RN CLOSING NOTES NO SIGNIFICANT CHANGES DURING AM SHIFT. AFEBRILE, PT IS STILL IS NPO, SPOKE WITH PRIMO, ENDORSED TO PM NURSE TO FOLLOW UP WITH DR NOVAK [phone], REGARDING PEG PLACEMENT. DR DAMICO TEXTED HIM IN AM. IV SITE IS PATENT, NO S/SX OF INFECTION/INFILTRATION NOTED. ALL SAFETY MEASURES MET. ALL NEEDS MET, CALL LIGHT WITHIN REACH
[2016-09-03 20:00] VITALS: BP 121/53
--- NOTE | 2016-09-03 20:20 | NUR ---
RN INITIAL NOTES RECEIVED PT IS IN BED, NO S/SX OF RESPIRATORY DISTRESS NOTED, A/O X1, WITH EPISODE OF CONFUSION NOTED, ON NC 2L, SATURATING WELL, IV SITES FLUSHED AND PATENT, SUPRAPUBIC CATH IS PATENT AND DRAINING YELLOW URINE. NPO - ON D5W@ 80ML/HR, ENDORSED BY AM SHIFT TO CALL DR NOVAK FOR PEG PLACEMENT, SPOKE TO MD, AWARE CONSENT IS SIGNED, SCHEDULED PLACEMENT FOR TUESDAY, PT STABLE ON IV FLUIDS AT THIS TIME, NO SIGNIFICANT CHANGE IN PT CONDITION NOTED AT THIS TIME. ASSISTED PT WITH REPOSITIONING. WILL CONTINUE TO MONITOR. SIDE RAILS UP, BED LOCKED AND IN LOWEST POSITION.
[2016-09-03] MEDS ORDERED: IV D5W 0 ML IV ONE (20:38)
[2016-09-03] MEDS: ATORVASTATIN 10 MG TABLET PO SCH (22:00)
--- NOTE | 2016-09-03 22:00 | NUR ---
LIPITOR NOT GIVEN AT THIS TIME PT NPO.
[2016-09-03] MEDS: MICAFUNGIN SODIUM 100 MG in IV NS 0.9% 100 ML IV SCH (22:48)
[2016-09-04] VITALS: BP 121/53
--- NOTE | 2016-09-04 06:00 | NUR ---
2030 ACCIDENTLY TOOK OUT D5W FOR 111-2 SHERMAN COFFEY NOTIFIED AND [facility]
--- NOTE | 2016-09-04 06:34 | NUR ---
RN CLOSING NOTES ENDORSED PT IS IN BED, NO S/SX OF RESPIRATORY DISTRESS NOTED, A/O X1, WITH EPISODE OF CONFUSION NOTED, ON NC 2L, SATURATING WELL, IV SITES FLUSHED AND PATENT, SUPRAPUBIC CATH IS PATENT AND DRAINING YELLOW URINE. NPO - ON D5W@ 80ML/HR, ENDORSED BY AM SHIFT TO CALL DR NOVAK FOR PEG PLACEMENT, SPOKE TO MD, AWARE CONSENT IS SIGNED, SCHEDULED PLACEMENT FOR TUESDAY, PT STABLE ON IV FLUIDS AT THIS TIME, NO SIGNIFICANT CHANGE IN PT CONDITION NOTED AT THIS TIME. ASSISTED PT WITH REPOSITIONING. WILL CONTINUE TO MONITOR. SIDE RAILS UP, BED
--- NOTE | 2016-09-04 07:00 | NUR ---
RN INITIAL NOTES PT IS IN BED, A/O X2, ON NC 2LPM O2, NO S/SX OF RESPIRATORY DISTRESS NOTED, CHARLIE MIDLINE FLUSHED AND PATENT, SUPRAPUBIC CATH IS PATENT AND DRAINING WILLAM COLOR URINE. STILL NPO - ON D5W@ 80ML/HR IV FLUID. AFEBRILE. SIDE RAILS UP, BED LOCKED AND IN LOWEST POSITION,CALL LIGHT WITHIN REACH, WILL CONTINUE TO MONITOR.
[2016-09-04 07:23] LABS: BASOPHILS % (AUTO) 0.2 % (0.0-2.0); EOSINOPHILS # (AUTO) 0.6 /CMM (0.0-0.7); EOSINOPHILS % (AUTO) 4.8 % (0.0-6.0); HEMATOCRIT 31 % (39-51); HEMOGLOBIN 10.1 g/dL (13.5-17.5); LYMPHOCYTES # (AUTO) 2.6 /CMM (0.8-4.8); LYMPHOCYTES % (AUTO) 19.7 % (20.0-44.0); MEAN CORPUSCULAR HEMOGLOBIN 26 PG (26.0-33.0); MEAN CORPUSCULAR HGB CONC 33 g/dl (31.0-36.0); MEAN CORPUSCULAR VOLUME 78 fL (80-96); MONOCYTES # (AUTO) 1.4 /CMM (0.1-1.30); MONOCYTES % (AUTO) 10.3 % (2.0-12.0); NEUTROPHILS # (AUTO) 8.7 /CMM (1.8-8.9); PLATELET COUNT (AUTO) 422 /CMM (150-450); RDW COEFFICIENT OF VARIATION 18.2 (11.5-15.0); RED BLOOD CELL COUNT(AUTO) 3.95 MIL/uL (4.5-6.0); WHITE BLOOD COUNT (AUTO) 13.4 K/uL (4.3-11.0)
[2016-09-04 07:48] LABS: ALANINE AMINOTRANSFERASE 18 U/L (12-78); ALBUMIN 1.8 g/dL (3.4-5.0); ALKALINE PHOSPHATASE 120 U/L (46-116); ASPARTATE AMINOTRANSFERASE 31 U/L (15-37); BILIRUBIN,TOTAL 0.4 mg/dL (0.2-1.0); CALCIUM, SERUM 7.9 mg/dL (8.5-10.1); CARBON DIOXIDE 22 mmol/L (21-32); CHLORIDE 103 mmol/L (98-107); CREATININE 3.5 mg/dL (0.6-1.3); GLUCOSE 96 mg/dL (74-106); SODIUM SERUM 135 mmol/L (136-145); TOTAL PROTEIN, SERUM 7.6 g/dL (6.4-8.2); UREA NITROGEN, BLOOD 40 mg/dL (7-18)
[2016-09-04 08:00] VITALS: BP_SYST 148; BP_SYST 161; BP_DIAS 67; BP_DIAS 80
[2016-09-04] MEDS: MEROPENEM 500 MG in IV NS 0.9% 50 ML IV SCH ×2 (08:01→20:00)
[2016-09-04] MEDS: LINEZOLID RTU BAG 600 MG in PREMIX 1 EA IV SCH (08:01)
[2016-09-04] MEDS: POLYVINYL ALCOHOL 15 ML BOTTLE EACHEYE SCH ×3 (08:01→16:38)
[2016-09-04] MEDS: CHLORHEXIDINE GLUCONATE 15 ML UDC MM SCH ×2 (08:01→16:38)
[2016-09-04] MEDS: CLOPIDOGREL BISULFATE 75 MG TABLET PO SCH (08:02)
[2016-09-04] MEDS: PANTOPRAZOLE 40 MG VIAL IV SCH (09:34)
--- NOTE | 2016-09-04 14:26 | NUR ---
SPOKE WITH DR HARRIS, EGD WITH PEG PLACEMENT WILL BE DONE 09/05/16 IN AM. CLEARED BY DR DAMICO FOR SX, NPO,HOLD COAGS, LABS ORDERED FOR TOMORROW - PT INR.
[2016-09-04] MEDS: Potassium Chloride 20 MEQ in IV D5W 1,000 ML IV PRN (14:38)
[2016-09-04 16:00] VITALS: BP 105/46
[2016-09-04] MEDS ORDERED: IV SET PRIMARY PUMP SET 1 EA INFUS.SET MC ONE (16:18)
[2016-09-04] MEDS: ALBUMIN 25% 25 GM in PREMIX 1 EA IV SCH ×2 (16:25→21:39)
[2016-09-04] MEDS: EPOETIN ALFA (10,000 UNIT) 10,000 UNIT/ML VIAL SQ SCH (16:38)
--- NOTE | 2016-09-04 18:51 | NUR ---
RN CLOSING NOTES NO CHANGE OF CONDITIONS DURING AM SHIFT, ON O2 VIA NC AND SATURING WELL, WILLAM COLOR URINE OF 450 TAKEN OUT SUPRAPUBIC CATH, NO BM, STILL NPO, PER DR CAMPOS, PT CLEARED FOR PEG PLACEMENT, MD NOVAK SAW THE PT TODAY AND SCHEDULED THE EGD WITH PEG PLACEMENT FOR TOMORROW. CONSENT OBTAINED FROM [facility] () AND FILE IN THE CHART. HOLD COAG. KEPT PT CLEAN AND DRY, TURNED AND REPOSITIONED, ALL NEEDS MET, ALL MEDS GIVEN ORDERED, PT TOLERATED IT WELL. ALL SAFETY MEASURES MET. WILL ENDORSE TO PM NURSE FOR CONTINUATION OF CARE.
--- NOTE | 2016-09-04 20:45 | NUR ---
RN INITIAL NOTES PT IS IN BED, A/O X2, ON NC 2LPM O2, NO S/SX OF RESPIRATORY DISTRESS NOTED, CHARLIE MIDLINE FLUSHED AND PATENT, SUPRAPUBIC CATH IS PATENT AND DRAINING WILLAM COLOR URINE. STILL NPO - ON D5W@ 80ML/HR IV FLUID, SCHEDULED FOR PEG PLACEMENT IN AM. AFEBRILE. SIDE RAILS UP, BED LOCKED AND IN LOWEST POSITION,CALL LIGHT WITHIN REACH, WILL CONTINUE TO MONITOR.
[2016-09-04] MEDS: ATORVASTATIN 10 MG TABLET PO SCH (22:00)
[2016-09-04] MEDS: MICAFUNGIN SODIUM 100 MG in IV NS 0.9% 100 ML IV SCH (22:13)
--- NOTE | 2016-09-04 22:14 | NUR ---
PAPOTOR AT 2200PM PO ON HOLD PT NPO
[2016-09-04] MEDS ORDERED: SECONDARY IV SET 1 EA INFUS.SET MC ONE (22:27)
[2016-09-05] VITALS: BP 126/58
[2016-09-05] MEDS: ALBUMIN 25% 25 GM in PREMIX 1 EA IV SCH ×2 (03:31→09:27)
[2016-09-05] MEDS: Potassium Chloride 20 MEQ in IV D5W 1,000 ML IV PRN (05:01)
--- NOTE | 2016-09-05 06:24 | NUR ---
RN CLOSING NOTES PT IS IN BED, A/O X2, ON NC 2LPM O2, NO S/SX OF RESPIRATORY DISTRESS NOTED, CHARLIE MIDLINE FLUSHED AND PATENT, SUPRAPUBIC CATH IS PATENT AND DRAINING WILLAM COLOR URINE. STILL NPO - ON D5W@ 80ML/HR IV FLUID, SCHEDULED FOR PEG PLACEMENT IN AM, CONSENT SIGNED. AFEBRILE. SIDE RAILS UP, BED LOCKED AND IN LOWEST POSITION,CALL LIGHT WITHIN REACH, WILL CONTINUE TO MONITOR.
--- NOTE | 2016-09-05 07:42 | NUR ---
RN INITIAL NOTES PT IS IN BED, A/O X2, ON NC 2LPM O2, NO S/S OF RESPIRATORY DISTRESS NOTED, CHARLIE MIDLINE FLUSHED AND PATENT, SUPRAPUBIC CATH IS PATENT AND DRAINING WILLAM COLOR URINE. PT STILL NPO - ON D5W@ 80ML/HR IV FLUID, SCHEDULED FOR PEG PLACEMENT THIS AM. PT CURRENTLY AFEBRILE. SIDE RAILS UP, BED LOCKED AND IN LOWEST POSITION,CALL LIGHT WITHIN REACH, WILL CONTINUE TO MONITOR.
[2016-09-05 07:50] LABS: INR 1.24 (0.87-1.13); PROTHROMBIN TIME 13.5 SECS (9.5-12.7)
[2016-09-05 08:00] VITALS: BP 135/61
[2016-09-05] MEDS: CHLORHEXIDINE GLUCONATE 15 ML UDC MM SCH ×2 (08:08→17:00)
[2016-09-05] MEDS: MEROPENEM 500 MG in IV NS 0.9% 50 ML IV SCH (08:08)
[2016-09-05] MEDS: POLYVINYL ALCOHOL 15 ML BOTTLE EACHEYE SCH ×3 (08:08→17:00)
[2016-09-05] MEDS: PANTOPRAZOLE 40 MG VIAL IV SCH (09:27)
[2016-09-05] MEDS ORDERED: CLINDAMYCIN 900 MG/6 ML VIAL ONE (09:35)
--- NOTE | 2016-09-05 10:19 | NUR ---
RN NOTE PT RETURNED FROM EGD AND G-TUBE PLACEMENT. RN SPOKE WITH MD CAMPOS IN REGARDS TO SURGERY STATES THAT WE MAY START FEEDINGS AND GIVING MEDICATION VIA G-TUBE.
--- NOTE | 2016-09-05 12:09 | NUR ---
RN NOTE SPOKE WITH PATIENT FAMILY , PT DAUGHTER AND IN REGARDS TO WISHES FOR PATIENT TO STAY UNTIL FURTHER EVALUATION OF G-TUBE PATENTCY. MD NOTIFIED AND STATED PT IS OK'D TO STAY UNTIL THE AM FOLLOWING THE START OF G-TUBE FEEDINGS
[2016-09-05] MEDS ORDERED: RENAL NOVASOURCE 1,000 ML BOTTLE GT PRN (13:30)
--- NOTE | 2016-09-05 14:21 | NUR ---
RN NOTE PATIENT REFUSED REPOSITIONING
--- NOTE | 2016-09-05 15:30 | NUR ---
RN NOTE PATIENT STARTED ON G- TUBE FEEDINGS [facility] AT 10 CC/HR
[2016-09-05 16:00] VITALS: BP 126/38
--- NOTE | 2016-09-05 17:25 | NUR ---
RN NOTE PATIENT REFUSED EYEDROPS AND ORAL CARE TONIGHT, PATIENTS G- TUBE FEEDING CHANGED TO 20 CC/HR. RN WILL CONTINUE O MONITOR FOR RESIDUAL
--- NOTE | 2016-09-05 19:35 | NUR ---
MS RN INITIAL NOTE RECEIVED PT IN BED. A/O X1 WITH CONFUSION AND EPISODES OF COMBATIVE BEHAVIOR. ON 2L OF O2 VIA NC AND TOLERATING WELL. IV ITE CHARLIE MIDLINE WITH FLUIDS RUNNING PATENT, CLEAN AND INTACT. GTUBE IN PLACE AND FEEDING WELL TOLERATED WITHOUT RESIDUAL AT THIS TIME. GTUBE SITE CLEAN, DRY AND INTACT. SUPRAPUBIC IN PLACE AND DRAINING BY GRAVITY. BED IN LOWEST POSITION AND LOCKED IN PLACE. CALL LIGHT WITHIN EASY REACH. WILL CONTINUE TO MONITOR.
[2016-09-05 20:00] VITALS: BP 145/51
--- NOTE | 2016-09-05 20:32 | NUR ---
rn note patient tube feed increased to 30 cc , no residual noted. nightshift nurse notified
--- NOTE | 2016-09-05 20:33 | NUR ---
RN CLOSING NOTES PT IS IN BED, A/O X2, ON NC 2LPM O2, NO S/SX OF RESPIRATORY DISTRESS NOTED, CHARLIE MIDLINE FLUSHED AND PATENT, SUPRAPUBIC CATH IS PATENT AND DRAINING WILLAM COLOR URINE. G- TUBE PRESENT AND PATENT RUNNING AT 30 CC /HR NO RESIDUALS NOTED ON D5W@ 80ML/HR IV FLUID,PT AFEBRILE. SIDE RAILS UP, BED LOCKED AND IN LOWEST POSITION,CALL LIGHT WITHIN REACH, REPORT GIVEN TO PM RN
[2016-09-05] MEDS: ATORVASTATIN 10 MG TABLET PO SCH (21:44)
[2016-09-06 04:00] VITALS: BP 109/50
[2016-09-06] MEDS: Potassium Chloride 20 MEQ in IV D5W 1,000 ML IV PRN (05:01)
--- NOTE | 2016-09-06 06:46 | NUR ---
MS RN CLOSING NOTE PT REMAINED STABLE DURING SHIFT. WITH EPISODES OF CONFUSION AND COMBATIVE BEHAVIOR DURING CARE AND REPOSITIONING. NO ACUTE DISTRESS NOTED. ON 2L OF O2 AND SATURATING WELL.IV SITE INTACT AND PATENT. GTUBE IN PLACE AND FEEDING WELL TOLERATED WITHOUT RESIDUAL NOTED. SUPRAPUBIC CATHETER IN PLACE. WILL ENDORSE TO NEXT SHIFT FOR JOHANNA.
--- NOTE | 2016-09-06 07:41 | NUR ---
MS RN INITIAL NOTE RECEIVED PT IN BED. A/O X1 WITH CONFUSION AND EPISODES OF COMBATIVE BEHAVIOR. ON 2L OF O2 VIA NC AND TOLERATING WELL. IV SITE CHARLIE MIDLINE WITH FLUIDS RUNNING PATENT, CLEAN AND INTACT. G-TUBE IN PLACE AND FEEDING WELL TOLERATED WITHOUT RESIDUAL AT THIS TIME. G-TUBE SITE CLEAN, DRY AND INTACT. SUPRAPUBIC IN PLACE AND DRAINING BY GRAVITY DARK COLORED URINE NOTED . BED IN LOWEST POSITION AND LOCKED IN PLACE. CALL LIGHT WITHIN EASY REACH. WILL CONTINUE TO MONITOR. NURSING STAFF WILL CONTINUE TO FOLLOW
[2016-09-06 08:00] VITALS: BP 146/56
[2016-09-06] MEDS: POLYVINYL ALCOHOL 15 ML BOTTLE EACHEYE SCH ×2 (08:54→13:00)
[2016-09-06] MEDS: CHLORHEXIDINE GLUCONATE 15 ML UDC MM SCH (08:55)
[2016-09-06] MEDS: PANTOPRAZOLE 40 MG VIAL IV SCH (08:55)
--- NOTE | 2016-09-06 12:21 | NUR ---
RN NOTE RN CONTACTED [facility] IN REGARDS TO THE PATIENT CONTINUED PLAN OF CARE POST DISCHARGE. D/C AT PM ALL NEW ORDER DISCUSSED ADMITTING RN ACKNOWLEDGED . RN WILL CONTINUE TO FOLLOW
--- NOTE | 2016-09-06 13:57 | NUR ---
RN NOTE PATIENT REFUSE EYE DROPS , -PATIENT BECAME AGGRESSIVE TOWARD STAFF PLAN TO D/C AT 3PM RN WILL CONTINUE TO FOLLOW
== END 2016-09-06 14:53 | DRG 871 ==
LOC: ER 14:53 → ICU 16:53 → TELE1 08-23 15:59 → MEDSG1 08-24 12:49
PROVIDERS: ADMIT Internal Medicine; ATTEND Internal Medicine
PROC: 5A09357 Assistance with Respiratory Ventilation, Less than 24 Consecutive Hours, Continuous Positive Airway Pressure (ICD-10-PCS; principal; 2016-08-22)
PROC: 05H533Z Insertion of Infusion Device into Right Subclavian Vein, Percutaneous Approach (ICD-10-PCS; 2016-08-24)
PROC: 0DH63UZ Insertion of Feeding Device into Stomach, Percutaneous Approach (ICD-10-PCS; 2016-09-05)
DX: A41.9 Sepsis, unspecified organism (principal); I21.4 Non-ST elevation (NSTEMI) myocardial infarction; J96.01 Acute respiratory failure with hypoxia; E43 Unspecified severe protein-calorie malnutrition; G92 Toxic encephalopathy; N17.0 Acute kidney failure with tubular necrosis; J15.6 Pneumonia due to other Gram-negative bacteria; N39.0 Urinary tract infection, site not specified; E87.0 Hyperosmolality and hypernatremia; I13.0 Hypertensive heart and chronic kidney disease with heart failure and stage 1 through stage 4 chronic kidney disease, or unspecified chronic kidney disease; J90 Pleural effusion, not elsewhere classified; J44.1 Chronic obstructive pulmonary disease with (acute) exacerbation; E87.2 Acidosis; J44.0 Chronic obstructive pulmonary disease with (acute) lower respiratory infection; N12 Tubulo-interstitial nephritis, not specified as acute or chronic; R65.20 Severe sepsis without septic shock; Z88.0 Allergy status to penicillin; Z66 Do not resuscitate; Z51.5 Encounter for palliative care; F03.90 Unspecified dementia, unspecified severity, without behavioral disturbance, psychotic disturbance, mood disturbance, and anxiety; I25.10 Atherosclerotic heart disease of native coronary artery without angina pectoris; D64.9 Anemia, unspecified; D50.9 Iron deficiency anemia, unspecified; E86.0 Dehydration; N18.9 Chronic kidney disease, unspecified; E83.39 Other disorders of phosphorus metabolism; L89.621 Pressure ulcer of left heel, stage 1; L89.611 Pressure ulcer of right heel, stage 1; C44.91 Basal cell carcinoma of skin, unspecified; E86.1 Hypovolemia; G89.4 Chronic pain syndrome; G62.9 Polyneuropathy, unspecified; I87.2 Venous insufficiency (chronic) (peripheral); D63.8 Anemia in other chronic diseases classified elsewhere; R13.10 Dysphagia, unspecified; F41.9 Anxiety disorder, unspecified; K44.9 Diaphragmatic hernia without obstruction or gangrene; Z91.19 Patient's noncompliance with other medical treatment and regimen; F09 Unspecified mental disorder due to known physiological condition; L89.129 Pressure ulcer of left upper back, unspecified stage
CPT/HCPCS: 31720; 36415; 36600; 71010-TC; 72128-TC; 76700-TC; 76770-TC; 80048-TC; 80053-TC; 80074; 80076-TC; 80202-TC; 81000-TC; 82570-TC; 83520; 83605-TC; 83735-TC; 83880; 84100-TC; 84155-TC; 84300-TC; 84484-TC; 85025-TC; 85610-TC; 85730-TC; 86256; 87040-TC; 87070-TC; 87081-TC; 87086-TC; 92526; 92611-TC; 93307-TC; 94640-TC; 94660; 94799-TC; A4216; A4606; C9113; J0692; J0885; J1644; J1940; J2020; J2185; J2248; J2543; J2704; J3370; J3475; J3480; J3490; J7030; J7040; J7050; J7060; J7070; P9047; Z7610

== ENCOUNTER 2016-09-14 08:03 | Inpatient (IN) | payer MEDICARE, BC ==
[~2016-09-14] VITALS: Ht 180.3 cm; Wt 83.5 kg
[~2016-09-14 08:03] MED LIST: ACET-868 GT; AMLO5TAB2 GT; ASCO-340 PO; CLON0.5T4 GT; CLOP75TA2 GT; CRAN3875 GT; CRAN425C GT; DEXT15DR6 EACHEYE; DOCU-25 GT; EPOE1VIA6 SQ; FERR-58 GT; LOPE2TAB25 PO; MAGN400O6 GT; MEMA28CA GT; METH1TAB30 GT; MULT1TAB11 GT; TRAZ-144 GT; ZOLP5TAB2 PO
--- NOTE | 2016-09-14 08:17 | NUR ---
PATIENT BIB RA D/T LOW O2 SATURATION AT [facility], NOTED 88%. O2 CURRENTLY 97% ON NON REBREATHER. PATIENT A/OX 1, TEMP 101.3 RECTALLY. PATIENT BREATHING EVEN. SAFETY AND COMRORT MEAURES IN PLACE. AWAITING MD ORDERS.
--- NOTE | 2016-09-14 08:20 | NUR ---
NEW IV STARTED ON LFA, 18 G. BLOOD DRAWN AND SENT TO LAB.
[2016-09-14] MEDS ORDERED: LEVOFLOXACIN 750 MG /D5W 150ML 150 ML IV ONE (08:25)
[2016-09-14] MEDS ORDERED: IV NS 0.9% 1,000 ML IV ONE ×2 (08:30→09:30)
[2016-09-14] MEDS ORDERED: LEVOFLOXACIN 750 MG /D5W 150ML PIGGYBACK IV ONE (08:30)
--- NOTE | 2016-09-14 08:52 | NUR ---
PAGED DR OLIVERA [phone]
[2016-09-14 08:57] LABS: CARBON DIOXIDE 28 mmol/L (21-32); CHLORIDE 103 mmol/L (98-107); CREATININE 3.1 mg/dL (0.6-1.3); GLUCOSE 116 mg/dL (74-106); POTASSIUM 4.5 mmol/L (3.5-5.1); SODIUM SERUM 139 mmol/L (136-145); UREA NITROGEN, BLOOD 49 mg/dL (7-18)
[2016-09-14 09:00] LABS: BASOPHILS % (AUTO) 0.2 % (0.0-2.0); EOSINOPHILS # (AUTO) 0.3 /CMM (0.0-0.7); EOSINOPHILS % (AUTO) 1.8 % (0.0-6.0); HEMATOCRIT 32 % (39-51); HEMOGLOBIN 10.4 g/dL (13.5-17.5); LYMPHOCYTES # (AUTO) 1.9 /CMM (0.8-4.8); LYMPHOCYTES % (AUTO) 11.4 % (20.0-44.0); MEAN CORPUSCULAR HEMOGLOBIN 25 PG (26.0-33.0); MEAN CORPUSCULAR HGB CONC 32 g/dl (31.0-36.0); MEAN CORPUSCULAR VOLUME 78 fL (80-96); MONOCYTES # (AUTO) 1.1 /CMM (0.1-1.30); MONOCYTES % (AUTO) 6.4 % (2.0-12.0); NEUTROPHILS # (AUTO) 13.5 /CMM (1.8-8.9); NEUTROPHILS % (AUTO) 80.2 % (43.0-81.0); PLATELET COUNT (AUTO) 522 /CMM (150-450); RED BLOOD CELL COUNT(AUTO) 4.15 MIL/uL (4.5-6.0); WHITE BLOOD COUNT (AUTO) 16.9 K/uL (4.3-11.0)
[2016-09-14 09:06] LABS: TROPONIN I 0.081 ng/mL (0.00-0.056)
[2016-09-14 09:11] LABS: ALANINE AMINOTRANSFERASE 26 U/L (12-78); ALBUMIN 2.4 g/dL (3.4-5.0); ALKALINE PHOSPHATASE 168 U/L (46-116); ASPARTATE AMINOTRANSFERASE 28 U/L (15-37); B-TYPE NATRIURETIC PEPTIDE 2490 PG/ML (0-125); BILIRUBIN,DIRECT 0.1 mg/dL (0.0-0.2); BILIRUBIN,TOTAL 0.3 mg/dL (0.2-1.0); TOTAL PROTEIN, SERUM 8.3 g/dL (6.4-8.2)
--- NOTE | 2016-09-14 09:16 | NUR ---
URINE OBTAINED AND SENT TO LAB.
[2016-09-14 09:22] LABS: INR 1.07 (0.87-1.13); PROTHROMBIN TIME 11.5 SECS (9.5-12.7)
[2016-09-14] MEDS ORDERED: MEROPENEM 1,000 MG in IV NS 0.9% 100 ML IV ONE (09:30)
[2016-09-14] MEDS ORDERED: IV NS 0.9% 100 ML IV ONE (09:30)
[2016-09-14] MEDS ORDERED: IV NS 0.9% 500 ML IV ONE (09:30)
[2016-09-14] MEDS ORDERED: HYDR-552 GT (09:39)
[2016-09-14] MEDS ORDERED: ATOR20TA GT (09:39)
[2016-09-14 09:48] LABS: APPEARANCE,URINE Cloudy (CLEAR); BILIRUBIN,URINE SMALL (NEGATIVE); BLOOD, URINE Large Ery/uL (NEGATIVE); COLOR,URINE Amber (YELLOW); KETONES,URINE Negative (NEGATIVE); LEUKOCYTE ESTERASE ,URINE Small (NEGATIVE); NITRITE, URINE Negative (NEGATIVE); PH,URINE 6.5 (5.0-8.0); PROTEIN,URINE >=300 mg/dl (NEGATIVE); UGLUCOSE Negative (NEGATIVE); UROBILINOGEN,URINE 0.2 EU/dL (0.2)
[2016-09-14 09:59] LABS: BACTERIA,URINE Moderate /HPF (None Seen); RBC,URINE TOO NUMEROUS TO COUN /HPF (0-2); SQUAMOUS EPITHELIAL CELL,UR None Seen /HPF (None Seen)
--- NOTE | 2016-09-14 10:04 | NUR ---
REPORT GIVEN TO SHERMAN GOLDSMITH FOR ADMISSION.
--- NOTE | 2016-09-14 10:25 | NUR ---
PAGED DR HOWE FOR ADMISSION
[2016-09-14] MEDS ORDERED: MAG HYDROX/AL HYDROX/SIMETH 30 ML UDC PO PRN (11:00)
[2016-09-14] MEDS ORDERED: ONDANSETRON HCL/PF 4 MG/2 ML VIAL IVP PRN (11:00)
[2016-09-14] MEDS ORDERED: Z GUARD REMEDY 2 OZ OINT TP PRN (11:00)
[2016-09-14] MEDS ORDERED: clonazePAM 0.5 MG TABLET GT PRN (11:00)
[2016-09-14] MEDS ORDERED: ACETAMINOPHEN 325 MG TABLET PO PRN (11:00)
[2016-09-14] MEDS ORDERED: HYDROCODONE/APAP 5/325MG 1 EACH TABLET PO PRN (11:00)
[2016-09-14] MEDS ORDERED: MEROPENEM 1 G in IV NS 0.9% 100 ML IV SCH (11:00)
[2016-09-14] MEDS ORDERED: MAGNESIUM HYDROXIDE 30 ML UDC PO PRN (11:00)
--- NOTE | 2016-09-14 11:00 | NUR ---
MS RN NOTES RECEIVED REPORT FROM ASHVIN. PATIENT ARRIVED TO UNIT VIA GURNEY. PATIENT IN STABLE CONDITION. NO S/S OF SOB OR DISTRESS NOTED. IV IS PATENT AND INTACT ON LEFT FOREARM GAUGE #18. PATIENT HAS SUPRAPUBIC CATHETER, INTACT, PATENT, DRAINING TEA-COLORED URINE. PATIENT HAS G-TUBE THAT IS PATENT AND INTACT. PATIENT A/OX1. PATIENT UNABLE TO THOROUGHLY COMMUNICATE. SPEECH IS GARBLED. WILL CONTINUE TO MONITOR THROUGHOUT SHIFT.
--- NOTE | 2016-09-14 11:05 | NUR ---
PATIENT TRANSPORTED TO [facility] FOR ADMISSION, SHERMAN GOLDSMITH TO PROVIDE JOHANNA.
[2016-09-14] MEDS: IV NS 0.9% 1,000 ML IV PRN (11:22)
[2016-09-14 13:00] VITALS: BP 146/71
[2016-09-14 16:00] VITALS: BP 116/87
[2016-09-14] MEDS: DOCUSATE SODIUM 100 MG CAPSULE PO SCH (17:51)
[2016-09-14] MEDS: MEMANTINE HCL 5 MG TABLET PO SCH (17:52)
--- NOTE | 2016-09-14 18:27 | NUR ---
MS RN NOTES PATIENT IS RESTING COMFORTABLY IN BED. SISTER IS AT BEDSIDE. NO S/S OF SOB OR DISTRESS NOTED. PATIENT IS A/OX1. RESPONDS SPONTANEOUSLY TO NAME AND TOUCH. IV IS PATENT AND INTACT. SUPRAPUBIC CATHETER IS PATENT AND INTACT, DRAINING TEA-COLORED URINE. G-TUBE IS PATENT AND INTACT. CHECKED FOR POSITIVE PLACEMENT. BED IS IN LOWEST, LOCKED POSITION. BED ALARM ON. CALL LIGHT IS WITHIN REACH. WILL ENDORSE CARE TO PM SHIFT.
--- NOTE | 2016-09-14 19:25 | NUR ---
RN NOTES RECEIVED PT AWAKE, HOB ELEVATED, NO SOB, NOT IN DISTRESS, ON 5LPM O2 VIA NASAL CANNULA AND TOLERATED WELL. PT ALERT, ORIENTED TO SELF ONLY, NONVERBAL, OPENS EYES TO VERBAL AND TACTILE STIMULI. IV ACCESS ON LEFT FORE ARM PATENT AND INTACT WITH ONGOING IV FLUID INFUSING WELL. GT INTACT, POSITIVE PLACEMENT, NO RESIDUAL NOTED. SUPRAPUBIC CATHETER INTACT WITH WILLAM COLORED URINE NOTED. KEPT COMFORTABLE, CLEAN AND DRY. BED IN THE LOWEST POSITION, LOCKED,, SIDERAILS UP WITH CALL LIGHT WITH IN REACH. WILL CONTINUE TO MONITOR PT.
[2016-09-14 20:00] VITALS: BP 149/79
[2016-09-14] MEDS: TRAZODONE 50 MG TABLET GT SCH (21:17)
[2016-09-14] MEDS: MEROPENEM 1 G in IV NS 0.9% 100 ML IV SCH (21:17)
[2016-09-14 22:00] VITALS: BP 149/79
[2016-09-14] MEDS ORDERED: Methenamine Hippurate 1 GM GT SCH (22:00)
[2016-09-15] MEDS: IV NS 0.9% 1,000 ML IV PRN ×2 (02:22→16:50)
[2016-09-15 06:57] LABS: BASOPHILS # (AUTO) 0.1 /CMM (0.0-0.2); BASOPHILS % (AUTO) 0.7 % (0.0-2.0); EOSINOPHILS # (AUTO) 0.6 /CMM (0.0-0.7); HEMATOCRIT 30 % (39-51); HEMOGLOBIN 9.5 g/dL (13.5-17.5); LYMPHOCYTES # (AUTO) 2.2 /CMM (0.8-4.8); LYMPHOCYTES % (AUTO) 11.7 % (20.0-44.0); MEAN CORPUSCULAR HEMOGLOBIN 25 PG (26.0-33.0); MEAN CORPUSCULAR HGB CONC 32 g/dl (31.0-36.0); MEAN CORPUSCULAR VOLUME 78 fL (80-96); MONOCYTES # (AUTO) 1.3 /CMM (0.1-1.30); MONOCYTES % (AUTO) 6.7 % (2.0-12.0); NEUTROPHILS # (AUTO) 14.9 /CMM (1.8-8.9); NEUTROPHILS % (AUTO) 77.9 % (43.0-81.0); PLATELET COUNT (AUTO) 397 /CMM (150-450); RDW COEFFICIENT OF VARIATION 18.7 (11.5-15.0); RED BLOOD CELL COUNT(AUTO) 3.78 MIL/uL (4.5-6.0); WHITE BLOOD COUNT (AUTO) 19.2 K/uL (4.3-11.0)
--- NOTE | 2016-09-15 07:30 | NUR ---
RN NOTES PT ASLEEP, HOB ELEVATED, NO SOB, NOT IN DISTRESS, ON 5LPM O2 VIA NASAL CANNULA AND TOLERATED WELL. PT OPENS EYES TO VERBAL AND TACTILE STIMULI. GT INTACT, POSITIVE PLACEMENT, NO RESIDUAL NOTED AND FLUSHES WELL. SUPRAPUBIC CATHETER INTACT WITH WILLAM COLORED URINE NOTED WITH TOTAL OUTPUT OF 700 ML. ALL DUE MEDS GIVEN. SKIN CARE AND WOUND CARE DONE. KEPT COMFORTABLE, CLEAN AND DRY. TURNED AND REPOSITION Q2H. WILL CONTINUE TO MONITOR PT.
--- NOTE | 2016-09-15 07:30 | NUR ---
MS RN NOTES RECEIVED REPORT WITH PATIENT RESTING COMFORTABLY IN BED. PATIENT IS A/OX1. RESPONDS SPONTANEOUSLY TO NAME AND TOUCH. PATIENT'S COMMUNICATION IS GARBLED. ABLE TO STATE SIMPLE WORDS. IV IS PATENT AND INTACT. G-TUBE IS PATENT AND INTACT. SUPRAPUBIC CATHETER IS PATENT AND INTACT, DRAINING TEA-COLORED URINE. BED IS IN THE LOWEST, LOCKED POSITION. WILL CONTINUE TO MONITOR THROUGHOUT SHIFT.
[2016-09-15 07:38] LABS: CALCIUM, SERUM 7.6 mg/dL (8.5-10.1); CARBON DIOXIDE 25 mmol/L (21-32); CHLORIDE 109 mmol/L (98-107); CREATININE 2.9 mg/dL (0.6-1.3); GLUCOSE 83 mg/dL (74-106); MAGNESIUM 1.7 mg/dL (1.8-2.4); PHOSPHORUS 4.8 mg/dL (2.5-4.9); POTASSIUM 4.2 mmol/L (3.5-5.1); SODIUM SERUM 144 mmol/L (136-145); UREA NITROGEN, BLOOD 42 mg/dL (7-18)
[2016-09-15 08:00] VITALS: BP 145/73
[2016-09-15] MEDS: PANTOPRAZOLE 40 MG TABLET.DR PO SCH (08:37)
[2016-09-15] MEDS: AMLODIPINE BESYLATE 5 MG TABLET GT SCH (08:38)
[2016-09-15] MEDS: DOCUSATE SODIUM 100 MG CAPSULE PO SCH ×2 (08:39→16:50)
[2016-09-15] MEDS: FERROUS SULFATE (325 MG) 325 MG/TAB TABLET GT SCH (08:39)
[2016-09-15] MEDS: MEMANTINE HCL 5 MG TABLET PO SCH ×2 (08:39→16:50)
[2016-09-15] MEDS: CLOPIDOGREL BISULFATE 75 MG TABLET GT SCH (08:39)
[2016-09-15] MEDS: MEROPENEM 1 G in IV NS 0.9% 100 ML IV SCH ×2 (08:40→21:17)
--- NOTE | 2016-09-15 10:56 | NUR ---
WOUND CARE CONSULT WOUND CONSULT RECEIVED, WOUND CARE WILL DEFER TO SURGICAL TEAM AT THIS TIME FOR TREATMENT PLANS. PATIENT WITH MARYAM AT 13, RECOMMEND TURNING SCHED Q 2 HOURS PATIENT CONDITION PERMITS, AND HEEL FLOATING. RECOMMEND CONTINUED USE OF Z GUARD FOR SKIN/MOISTURE MANAGEMENT. ALL PRESSURE ULCER PREVENTION MEASURES ARE NOTED TO BE IN PLACE. MD IN AGREEMENT WITH PLAN OF CARE.
[2016-09-15] MEDS: FIBERSOURCE HN 1,000 ML BOTTLE GT PRN (14:37)
[2016-09-15] MEDS ORDERED: VITAMINS A AND D 56.7 GM TUBE TP PRN (16:00)
[2016-09-15 16:38] VITALS: BP 153/84
--- NOTE | 2016-09-15 19:18 | NUR ---
MS RN NOTES PATIENT IS A/OX1, GARBLED SOUNDS. NO S/S OF SOB OR DISTRESS NOTED. CARDONA CATH INTACT AND PATENT, DRAINING TEA-COLORED/REDDISH URINE. IV IS PATENT AND INTACT. G-TUBE IS PATENT AND INTACT. ALL PATIENT NEEDS MET. BED IS IN LOWEST, LOCKED POSITION. WILL ENDORSE CARE TO PM SHIFT.
[2016-09-15 20:00] VITALS: BP 155/87
[2016-09-15] MEDS: ATORVASTATIN 10 MG TABLET GT SCH (21:37)
[2016-09-15] MEDS: TRAZODONE 50 MG TABLET GT SCH (21:37)
[2016-09-15] MEDS: VANCOMYCIN 1.25 GM in IV D5W 500 ML IV SCH (23:30)
[2016-09-16] MEDS ORDERED: VANCOMYCIN 1 GM VIAL ONE (05:15)
[2016-09-16] MEDS: VANCOMYCIN 1.25 GM in IV D5W 500 ML IV SCH (05:27)
--- NOTE | 2016-09-16 06:53 | NUR ---
MS RN NOTES AWAKE & RESPONSIVE. NOT IN ANY DISTRESS. NO SOB NOTED. DENIES ANY PAIN OR DISCOMFORT AT THIS TIME. WITH GTF INFUSING WELL. WITH IV-HL PATENT & INTACT. AM CARE DONE. MONITORED ACCORDINGLY. CALL LIGHT WITHIN REACH. BED IN LOWEST POSITION. SR UP X3 WITH BED ALARM ON FOR SAFETY . CALL LIGHT WITHIN REACH. BED IN LOWEST POSITION. WILL ENDORSE TO NEXT SHIFT.
[2016-09-16 07:43] LABS: BASOPHILS # (AUTO) 0.1 /CMM (0.0-0.2); BASOPHILS % (AUTO) 0.5 % (0.0-2.0); EOSINOPHILS # (AUTO) 1.1 /CMM (0.0-0.7); EOSINOPHILS % (AUTO) 7.1 % (0.0-6.0); HEMATOCRIT 29 % (39-51); HEMOGLOBIN 9.2 g/dL (13.5-17.5); LYMPHOCYTES # (AUTO) 1.7 /CMM (0.8-4.8); LYMPHOCYTES % (AUTO) 11.2 % (20.0-44.0); MEAN CORPUSCULAR HEMOGLOBIN 25 PG (26.0-33.0); MEAN CORPUSCULAR HGB CONC 31 g/dl (31.0-36.0); MEAN CORPUSCULAR VOLUME 79 fL (80-96); MONOCYTES # (AUTO) 1.2 /CMM (0.1-1.30); MONOCYTES % (AUTO) 8.1 % (2.0-12.0); NEUTROPHILS # (AUTO) 10.9 /CMM (1.8-8.9); NEUTROPHILS % (AUTO) 73.1 % (43.0-81.0); PLATELET COUNT (AUTO) 417 /CMM (150-450); RDW COEFFICIENT OF VARIATION 19.6 (11.5-15.0); WHITE BLOOD COUNT (AUTO) 14.9 K/uL (4.3-11.0)
--- NOTE | 2016-09-16 07:50 | NUR ---
MS RN OPENING NOTES RECEIVED PT FROM NIGHTSHIFT NURSE IN STABLE CONDITION. PT IS A/O X1, CONFUSED, AND NON VERBAL. NO SOB OR SIGNS OF DISTRESS NOTED. BREATHING IS EVEN AND UNLABORED. PT IS ON 2L O2 VIA NC AND SATING WELL @ 96%. SUPRAPUBIC CATHETER IN TACT AND CLEAN DRAINING CLEAR YELLOW URINE. IV PRESENT IN LEFT FA 18G HL. IV I.S PATENT TO NS FLUSH AND INTACT. GTUBE INTACT. PLACEMENT CONFIRMED BY AUSCULTATION. PT. CURRENTLY RECEIVING TUBE FEEDING @ 35ML/ HR. NO RESIDUALS ASPIRATED AT THIS TIME. PT TOLERATING INFUSION WELL. HEAD OF THE BED ELEVATED FOR PROPER LUNG EXPANSION AND PREVENTION OF ASPIRATION. BED IN LOW LOCKED POSITION, SIDE RAILS UP X3, CALL LIGHT WITHIN REACH. WILL CONTINUE TO MONITOR.
[2016-09-16 07:52] LABS: CALCIUM, SERUM 7.6 mg/dL (8.5-10.1); CARBON DIOXIDE 27 mmol/L (21-32); CHLORIDE 111 mmol/L (98-107); CREATININE 2.9 mg/dL (0.6-1.3); GLUCOSE 137 mg/dL (74-106); MAGNESIUM 1.6 mg/dL (1.8-2.4); SODIUM SERUM 146 mmol/L (136-145); UREA NITROGEN, BLOOD 41 mg/dL (7-18)
[2016-09-16] MEDS: FIBERSOURCE HN 1,000 ML BOTTLE GT PRN (09:03)
[2016-09-16] MEDS: FERROUS SULFATE (325 MG) 325 MG/TAB TABLET GT SCH (09:07)
[2016-09-16] MEDS: DOCUSATE SODIUM 100 MG CAPSULE PO SCH ×2 (09:07→16:58)
[2016-09-16] MEDS: CLOPIDOGREL BISULFATE 75 MG TABLET GT SCH (09:07)
[2016-09-16] MEDS: MEROPENEM 1 G in IV NS 0.9% 100 ML IV SCH ×2 (09:07→20:42)
[2016-09-16] MEDS: MEMANTINE HCL 5 MG TABLET PO SCH ×2 (09:07→16:58)
[2016-09-16] MEDS: PANTOPRAZOLE 40 MG TABLET.DR PO SCH (09:07)
[2016-09-16] MEDS: AMLODIPINE BESYLATE 5 MG TABLET GT SCH (09:08)
[2016-09-16 09:21] LABS: EOSINOPHILS % (MANUAL) 2 % (0-4); LYMPHOCYTES % (MANUAL) 7 % (16-48); MONOCYTES % (MANUAL) 4 % (0-11.0); NEUTROPHILS % (MANUAL) 87 (42-76)
[2016-09-16] MEDS ORDERED: FEE PK DOSING 1 MIN EA MC ONE (09:51)
[2016-09-16 10:33] VITALS: BP 148/80
[2016-09-16] MEDS: Magnesium 1GM/D5W 100ML PREMIX 100 ML IV SCH ×2 (14:34→16:24)
[2016-09-16] MEDS: SOD FERRIC GLUC 125 MG in IV NS 0.9% 100 ML IV SCH (14:52)
[2016-09-16 16:00] VITALS: BP 103/54
--- NOTE | 2016-09-16 18:30 | NUR ---
MS RN CLOSING NOTES PT. REMAINS IN STABLE CONDITION. NO ACUTE CHANGES IN CONDITION DURING SHIFT. ALL NEEDS WERE ANTICIPATED AND MET. ALL ORDERS CARRIED OUT ACCORDINGLY. PT WAS KEPT DRY AND CLEAN ALL THROUGHOUT SHIFT. PT WAS REPOSITIONED Q2HRS. ALL SAFETY MEASURES REMAIN IN PLACE. WILL ENDORSE TO NIGHTSHIFT NURSE FOR JOHANNA
--- NOTE | 2016-09-16 19:20 | NUR ---
MS RN NOTES RECEIVED PT IN BED, AWAKE & RESPONSIVE. NOT IN ANY DISTRESS. NO SOB NOTED. NO C/O PAIN OR DISCOMFORT AT THIS TIME.GT IS INTACT AND PATENT, GTF INFUSING WELL. HOB ELEVATED FOR ASPIRATION PRECAUTION. WITH IV-HL ON LFA PATENT & INTACT. CALL LIGHT WITHIN REACH. BED IN LOWEST POSITION. SR UP X3 WITH BED ALARM ON FOR SAFETY . CALL LIGHT WITHIN REACH. BED IN LOWEST POSITION. WILL CONTINUE TO MONITOR.
[2016-09-16 20:00] VITALS: BP 124/50
[2016-09-16] MEDS: ATORVASTATIN 10 MG TABLET GT SCH (22:21)
[2016-09-16] MEDS: TRAZODONE 50 MG TABLET GT SCH (22:21)
--- NOTE | 2016-09-17 06:40 | NUR ---
MS RN NOTES PT IN BED, AWAKE & RESPONSIVE. NOT IN ANY DISTRESS. NO SOB NOTED. NO C/O PAIN OR DISCOMFORT AT THIS TIME. GT IS INTACT AND PATENT, GTF INFUSING WELL. HOB ELEVATED FOR ASPIRATION PRECAUTION. WITH IV-HL ON LFA PATENT & INTACT. CALL LIGHT WITHIN REACH. BED IN LOWEST POSITION. SR UP X3 WITH BED ALARM ON FOR SAFETY . CALL LIGHT WITHIN REACH. BED IN LOWEST POSITION. WILL ENDORSE TO NEXT SHIFT FOR JOHANNA.
[2016-09-17 07:04] LABS: CALCIUM, SERUM 7.8 mg/dL (8.5-10.1); CARBON DIOXIDE 28 mmol/L (21-32); CHLORIDE 110 mmol/L (98-107); CREATININE 2.8 mg/dL (0.6-1.3); GLUCOSE 94 mg/dL (74-106); MAGNESIUM 2.1 mg/dL (1.8-2.4); PHOSPHORUS 4.3 mg/dL (2.5-4.9); POTASSIUM 3.8 mmol/L (3.5-5.1); SODIUM SERUM 145 mmol/L (136-145); UREA NITROGEN, BLOOD 38 mg/dL (7-18)
[2016-09-17 07:11] LABS: BASOPHILS # (AUTO) 0.1 /CMM (0.0-0.2); BASOPHILS % (AUTO) 0.4 % (0.0-2.0); EOSINOPHILS # (AUTO) 1.3 /CMM (0.0-0.7); EOSINOPHILS % (AUTO) 9.5 % (0.0-6.0); HEMATOCRIT 30 % (39-51); HEMOGLOBIN 9.3 g/dL (13.5-17.5); LYMPHOCYTES # (AUTO) 2.5 /CMM (0.8-4.8); MEAN CORPUSCULAR HEMOGLOBIN 24 PG (26.0-33.0); MEAN CORPUSCULAR HGB CONC 31 g/dl (31.0-36.0); MEAN CORPUSCULAR VOLUME 78 fL (80-96); MONOCYTES # (AUTO) 1.4 /CMM (0.1-1.30); MONOCYTES % (AUTO) 10.2 % (2.0-12.0); NEUTROPHILS % (AUTO) 60.9 % (43.0-81.0); PLATELET COUNT (AUTO) 415 /CMM (150-450); RDW COEFFICIENT OF VARIATION 19.8 (11.5-15.0); RED BLOOD CELL COUNT(AUTO) 3.81 MIL/uL (4.5-6.0); WHITE BLOOD COUNT (AUTO) 13.2 K/uL (4.3-11.0)
[2016-09-17 08:00] VITALS: BP 113/52
--- NOTE | 2016-09-17 08:01 | NUR ---
RN Notes On bed awake,alert and oriented to self. Denies headache or dizziness. With 02 inhalation at 4 lpm via nasal canula saturating at 96%. With SOB upon exertion. With IV access on left forearm gg 18 patent and intact. No complain at this time.
[2016-09-17] MEDS: DOCUSATE SODIUM 100 MG CAPSULE PO SCH ×2 (08:13→16:32)
[2016-09-17] MEDS: FERROUS SULFATE (325 MG) 325 MG/TAB TABLET GT SCH (08:13)
[2016-09-17] MEDS: PANTOPRAZOLE 40 MG TABLET.DR PO SCH (08:13)
[2016-09-17] MEDS: CLOPIDOGREL BISULFATE 75 MG TABLET GT SCH (08:13)
[2016-09-17] MEDS: MEMANTINE HCL 5 MG TABLET PO SCH ×2 (08:13→16:32)
[2016-09-17] MEDS: MEROPENEM 1 G in IV NS 0.9% 100 ML IV SCH (08:13)
[2016-09-17] MEDS: AMLODIPINE BESYLATE 5 MG TABLET GT SCH (08:29)
[2016-09-17 10:28] LABS: IRON, SERUM 31 ug/dl (50-175); TOTAL IRON BINDING CAPACITY 139 ug/dl (250-450)
[2016-09-17] MEDS: SOD FERRIC GLUC 125 MG in IV NS 0.9% 100 ML IV SCH (14:25)
[2016-09-17] MEDS ORDERED: LEVO500T15 PO (15:27)
[2016-09-17 16:00] VITALS: BP 138/94
--- NOTE | 2016-09-17 16:52 | NUR ---
RN Notes [facility] Discharge instruction given to patient regarding levaquin to cont at intermediate. IV access removed and secured site with dressing. Final body check done with skin intact. Picture documentation done. patient has no belongings. Report given to SHERMAN guallpa. Waiting ambulance for pick and shovel man.
[2016-09-17] MEDS ORDERED: VANCOMYCIN 1 GM in IV D5W 250 ML IV SCH (18:00)
--- NOTE | 2016-09-17 18:08 | NUR ---
RN Notes Left [facility] in stable condition vi marcelino per [facility].
== END 2016-09-17 18:09 | DRG 871 ==
LOC: ER 08:04 → MED 10:07
PROVIDERS: ADMIT Internal Medicine; ATTEND Internal Medicine
DX: A41.9 Sepsis, unspecified organism (principal); E43 Unspecified severe protein-calorie malnutrition; G93.41 Metabolic encephalopathy; N17.0 Acute kidney failure with tubular necrosis; I22.2 Subsequent non-ST elevation (NSTEMI) myocardial infarction; I21.4 Non-ST elevation (NSTEMI) myocardial infarction; R53.2 Functional quadriplegia; J69.0 Pneumonitis due to inhalation of food and vomit; J96.00 Acute respiratory failure, unspecified whether with hypoxia or hypercapnia; E87.2 Acidosis; E87.0 Hyperosmolality and hypernatremia; N18.4 Chronic kidney disease, stage 4 (severe); D50.9 Iron deficiency anemia, unspecified; K21.9 Gastro-esophageal reflux disease without esophagitis; R13.10 Dysphagia, unspecified; Z66 Do not resuscitate; Z85.828 Personal history of other malignant neoplasm of skin; I12.9 Hypertensive chronic kidney disease with stage 1 through stage 4 chronic kidney disease, or unspecified chronic kidney disease; E78.5 Hyperlipidemia, unspecified; D63.8 Anemia in other chronic diseases classified elsewhere; E86.0 Dehydration; F41.9 Anxiety disorder, unspecified; I25.10 Atherosclerotic heart disease of native coronary artery without angina pectoris; J44.9 Chronic obstructive pulmonary disease, unspecified; L98.499 Non-pressure chronic ulcer of skin of other sites with unspecified severity; I87.2 Venous insufficiency (chronic) (peripheral); L53.8 Other specified erythematous conditions; G30.9 Alzheimer's disease, unspecified; F02.80 Dementia in other diseases classified elsewhere, unspecified severity, without behavioral disturbance, psychotic disturbance, mood disturbance, and anxiety; Z93.1 Gastrostomy status; Z68.25 Body mass index [BMI] 25.0-25.9, adult; L98.8 Other specified disorders of the skin and subcutaneous tissue; Z79.899 Other long term (current) drug therapy; D69.2 Other nonthrombocytopenic purpura; Z98.61 Coronary angioplasty status; Z96.649 Presence of unspecified artificial hip joint; C44.609 Unspecified malignant neoplasm of skin of left upper limb, including shoulder; R65.20 Severe sepsis without septic shock
CPT/HCPCS: 36415; 71010-TC; 80048-TC; 80076-TC; 81000-TC; 82962-TC; 83540-TC; 83605-TC; 83735-TC; 83880; 84100-TC; 84484-TC; 85025-TC; 85730-TC; 87040-TC; 87081-TC; 87086-TC; 94799-TC; A4606; A6253; A6402; J1956; J2185; J2916; J3370; J3475; J7030; J7040; J7060; Z7610